=== PATIENT | female | born 1960 | race Caucasian/White ===

== ENCOUNTER 2016-08-31 22:03 | Inpatient (IN) | payer MEDICAID, OTHER ==
[2016-08-31] MEDS ORDERED: Albuterol-Ipratrop 3 mg / 0.5 (3 ml) UD ONE ×2 (22:14→22:23)
[2016-08-31] MEDS ORDERED: Albuterol-Ipratrop 3 mg / 0.5 (3 ml) UD IH STA (22:47)
[2016-08-31 23:20] LABS: BASO % 0.6 % (0.0-2.0); EOS # 0.1 K/uL (0.0-0.7); LYMPH # 0.7 K/uL (1.0-4.3); MEAN PLATELET VOLUME 7.9 fL (7.2-11.7); MONO # 0.6 K/uL (0.0-0.8); NRBC % 0.2 % (0.0-2.0); RED CELL DISTRIBUTION WIDTH 15.6 % (11.5-14.5)
[2016-08-31 23:25] LABS: CHLORIDE 93 mmol/L (98-107)
[2016-08-31 23:26] LABS: SODIUM 131 mmol/L (132-148)
[2016-08-31 23:28] LABS: AST/SGOT 38 U/L (14-36); BILIRUBIN,TOTAL 0.8 mg/dL (0.2-1.3); CARBON DIOXIDE 25 mmol/L (22-30); GFR AFRICAN-AMERICAN > 60; TOTAL PROTEIN 7.3 g/dL (6.3-8.3)
[2016-08-31 23:29] LABS: ALKALINE PHOSPHATASE 33 U/L (38-126); ALT/SGPT 28 U/L (9-52); BLOOD UREA NITROGEN 17 mg/dL (7-17); CALCIUM 8.5 mg/dl (8.6-10.4); EOS % 6.3 % (0.0-4.0); GLUCOSE,RANDOM 190 mg/dL (65-105); HEMATOCRIT 30.6 % (34.0-47.0); LYMPH % 35.6 % (20.0-40.0); MEAN CELL VOLUME 89.6 fL (81.0-99.0); MEAN CORPUSCULAR HEMOGLOBIN 30.6 pg (27.0-31.0); MEAN CORPUSCULAR HGB CONC 34.1 g/dL (33.0-37.0); MONO % 28.4 % (0.0-10.0); PLATELET COUNT 177 K/uL (130-400)
[2016-08-31 23:31] LABS: INR 1.1
[2016-08-31] MEDS ORDERED: Potassium Chloride 20 mEq ER Tab PO STA (23:50)
[2016-08-31] MEDS ORDERED: Lactated Ringer's 1,000 ML IVB STA (23:51)
[2016-08-31] MEDS ORDERED: ceFAZolin IV 1 gm in Dextrose 1 GM/50 ML BAG IVPB STA (23:51)
[2016-08-31] MEDS ORDERED: Azithromycin 500mg/250ML NS 500 MG/250 ML BAG IVPB STA (23:51)
[2016-08-31] MEDS ORDERED: Lactated Ringer's 1,000 ML ONE (23:58)
[2016-08-31] MEDS ORDERED: Potassium Chloride 20 mEq ER Tab PO ONE ×2 (23:58→23:59)
[2016-09-01 00:09] LABS: ABG ALLEN TEST POS; DRAW SITE R RAD
[2016-09-01] MEDS ORDERED: ceFAZolin 1 gm FROZEN Premix 1 GM/50 ML ML IVPB ONE (00:26)
[2016-09-01] MEDS ORDERED: Azithromycin 500mg/250ML NS 500 MG/250 ML BAG IVPB ONE (00:26)
--- NOTE | 2016-09-01 00:34 | C.PDOC ---
Time Seen by Provider: 08/31/16 22:38 Chief Complaint (Nursing): Shortness Of Breath History Per: Patient, Family Onset/Duration Of Symptoms: Days Current Symptoms Are (Timing): Worse Current Respiratory Medications: See Home Med List Severity: Severe Associated Symptoms: Fever, Productive Cough Reports Recently: Treated By A Physician Additional History Per: Prior Records Past Medical History Reviewed: Historical Data, Nursing Documentation, Vital Signs Vital Signs: Last Vital Signs Temp 102.6 F H 09/01/16 00:02 Pulse 111 H 08/31/16 22:13 Resp 24 08/31/16 23:02 BP 117/58 L 08/31/16 22:57 Pulse Ox 94 L 09/01/16 00:36 - Medical History PMH: Diabetes, HTN Family History: States: Unknown Family Hx - Social History Hx Tobacco Use: No Hx Alcohol Use: No Hx Substance Use: No Review Of Systems Except As Marked, All Systems Reviewed And Found Negative. Constitutional: Positive for: Fever, Malaise Cardiovascular: Positive for: Chest Pain Respiratory: Positive for: Cough, Shortness of Breath. Negative for: Hemoptysis Gastrointestinal: Negative for: Abdominal Pain Musculoskeletal: Negative for: Neck Pain Skin: Negative for: Rash Neurological: Negative for: Weakness, Numbness, Seizures, Altered Mental Status Physical Exam - Physical Exam Appears: In Acute Distress Skin: Normal Color, Warm, Dry Head: Atraumatic, Normacephalic Eye(s): bilateral: PERRL, EOMI Neck: Normal ROM, Supple Cardiovascular: Rhythm Regular Respiratory: No Accessory Muscle Use, Rhonchi, Other (tachypnea) Gastrointestinal/Abdominal: Soft, No Tenderness Back: No CVA Tenderness Extremity: Normal ROM, No Calf Tenderness Neurological/Psych: Oriented x3, Normal Motor, Normal Sensation ED Course And Treatment - Laboratory Results Result Diagrams: 08/31/16 23:14 08/31/16 23:14 Lab Interpretation: Abnormal Interpretation Of Abnormal: Low wbc count. ECG: Interpreted By Me, Viewed By Me ECG Rhythm: Sinus Rhythm, Nonspecific Changes Rate From EC O2 Sat by Pulse Oximetry: 94 Pulse Ox Interpretation: Other Interpretation Of Abnormal: borderline - Radiology CXR: Interpreted by Me, Viewed By Me CXR Interpretation: Yes: Infiltrates (left lower) Progress - Interventions Interventions:: Observation, Intravenous fluid, Oxygen - Medications Administered Oral: Acetaminophen, Other (KCl) Inhaled nebulized: Anticholinergic, Beta-2 agonist Intravenous: Corticosteroid, Other (Abx) - Data Reviewed Data Reviewed: Lab, Diagnostic imaging, EKG, Old records - Patient Status Patient status: Partially improved - Critical Care Citical Care: Excluding Proc Time Critical Care Time: 60 minutes - Continuity of Care Discussed patient case with:: Patient, Family-HIPPA compliant Disposition - Disposition Disposition Time: 01:00 Condition: FAIR - Clinical Impression Clinical Impression: Pneumonia Physician Patient Turnover Patient Signed Over To: Ester Gaspar Handoff Comments: pending call back from PMD Dr. Huntley for admission
[2016-09-01 02:09] LABS: EOSINOPHIL 5 % (0-4); NEUTROPHIL 25 % (50-75); TOTAL CELLS COUNTED 100
[2016-09-01 03:47] LABS: URINE BILIRUBIN NEGATIVE (NEGATIVE); URINE BLOOD NEGATIVE (NEGATIVE); URINE COLOR Yellow (YELLOW); URINE GLUCOSE (UA) 2+ mg/dL (Normal); URINE KETONE NEGATIVE (NEGATIVE); URINE LEUKOCYTE ESTERASE NEG Leu/uL (Negative); URINE PROTEIN 1+ mg/dL (NEGATIVE); URINE UROBILINOGEN NORMAL mg/dL (0.2-1.0); WBC URINE 1 /hpf (0-5)
[2016-09-01] MEDS: Albuterol-Ipratrop 3 mg / 0.5 (3 ml) UD IH SCH ×4 (03:59→17:27)
[2016-09-01] MEDS ORDERED: Promethazine/Cod 6.25mg-10mg/5ml Syr UD PO STA (05:50)
--- NOTE | 2016-09-01 11:05 | RAD ---
PROCEDURE: CHEST RADIOGRAPH, 1 VIEW HISTORY: Shortness of breath COMPARISON: None available. FINDINGS: LUNGS: Mild venous congestion. Patchy left basilar airspace opacity with small left pleural effusion. Nodular density at the left lung base. Biapical pleural thickening. Right hilar prominence. PLEURA: As above. CARDIOVASCULAR: Normal. OSSEOUS STRUCTURES: Diffuse osteopenia. VISUALIZED UPPER ABDOMEN: Normal. OTHER FINDINGS: None. IMPRESSION: Mild venous congestion. Patchy left basilar airspace opacity with small left pleural effusion. Nodular density at the left lung base. Biapical pleural thickening. Right hilar prominence.
[2016-09-01] MEDS ORDERED: LENALIDOMIDE 15 MG PO SCH (11:30)
--- NOTE | 2016-09-01 11:42 | CP.PCM.PN ---
Subjective - Date & Time of Evaluation Date of Evaluation: 09/01/16 Time of Evaluation: 07:40 - Subjective Subjective: PGY2 Medicine Note - Dr. Huntley's Service CC: Cough + SOB x 3weeks HPI: This 56 year old Female with PMHx of Diabetes, HTN, Multiple Myeloma - presents to the ED c/o non-productive cough and SOB for the past 3 weeks. She states there is mucous present, however she cannot expel it. One week ago, she began to experience nausea from this mucous sensation, and reports vomiting 2-3 times per day, consistent with food contents and dark green mucous. She experiences relief after vomiting, and denies hematoschezia. Patient reports that she became febrile 2 days ago at 102.2F. She was treated by her PMD recently with oral Abx and Ventolin INH without marked improvement. Last nite her cough and SOB became more severe, prompting her to come to the ED last night (Tmax 103F). She recently imigrated from [place] 1 month ago. Admits to f/c , diaphoresis, weakness, SOB, cough, Abd pain. Denies H/A, dizziness, chest pain , overt nausea, dysuria, leg pain, sick contacts, or any additional complaints. PMD: Dr. Huntley PMH: Diabetes, HTN, Multiple Myeloma PSHx: bone marrow transplant Family History: States: Unknown Family Hx Meds: see EMR NKDA SocHx: Denies ETOH, tobacco, or illicit drug use Objective - Vital Signs/Intake and Output Vital Signs (last 24 hours): Temp Pulse Resp BP Pulse Ox 97.4 F L 61 19 99/62 L 96 09/01/16 08:06 09/01/16 08:06 09/01/16 08:06 09/01/16 08:06 09/01/16 08:06 - Medications Medications: Current Medications Albuterol/Ipratropium (Duoneb 3 Mg/0.5 Mg (3 Ml) Ud) 3 ml IH RQ4 DK Home Med (Amlodipine/Valsartan [Exforge 10-160 Mg Tablet]) 1 tab PO DAILY DK Home Med (Lenalidomide [Revlimid]) 15 mg PO DAILY DK Home Med (Sitagliptin Phos/Metformin Hcl [Janumet 50-1,000 Mg Tablet]) 1 each PO DAILY [facility] Ceftriaxone Sodium 1 gm/ (Sodium Chloride) 100 mls @ 100 mls/hr IVPB DAILY [facility] Azithromycin (Zithromax 500mg In Ns Addvantage) 500 mg in 250 mls @ 167 mls/hr IVPB Q24H [facility] Insulin Aspart (Novolog) 0 unit SC ACHS DK PRN Reason: Protocol Prednisone (Prednisone Tab) 10 mg PO BID [facility] Pregabalin (Lyrica) 75 mg PO DAILY [facility] Fluticasone/Salmeterol (Advair Diskus 250/50) 1 puff INH RQ12 DK - Labs Labs: PT 12.1 SECONDS (9.7-12.2) 08/31/16 23:14 INR 1.1 08/31/16 23:14 APTT 23 SECONDS (21-34) 08/31/16 23:14 - Constitutional Appears: Non-toxic, No Acute Distress - Head Exam Head Exam: ATRAUMATIC, NORMAL INSPECTION - Eye Exam Eye Exam: EOMI, Normal appearance, PERRL Pupil Exam: NORMAL ACCOMODATION - ENT Exam ENT Exam: Mucous Membranes Moist - Neck Exam Neck Exam: Full ROM, Normal Inspection. absent: Tenderness - Respiratory Exam Respiratory Exam: Decreased Breath Sounds, NORMAL BREATHING PATTERN. absent: Rales, Rhonchi, Wheezes Additional comments: +Cough - Cardiovascular Exam Cardiovascular Exam: REGULAR RHYTHM, +S1, +S2. absent: Tachycardia Additional comments: Tenderness along R chest wall (likely from coughing) - GI/Abdominal Exam GI & Abdominal Exam: Soft, Tenderness (mid epigastric), Hypoactive Bowel Sounds - Extremities Exam Extremities Exam: Normal Capillary Refill, Normal Inspection. absent: Pedal Edema, Tenderness - Back Exam Back Exam: NORMAL INSPECTION. absent: CVA tenderness (L), CVA tenderness (R) - Neurological Exam Neurological Exam: Alert, Awake, Oriented x3 - Psychiatric Exam Psychiatric exam: Normal Affect, Normal Mood - Skin Skin Exam: Dry, Intact, Normal Color, Warm Assessment and Plan - Assessment and Plan (Free Text) Assessment: Non-Productive Cough + Dyspnea - CXR - Mild venous congestion. Patchy left basilar airspace opacity with small left pleural effusion. Nodular density at the left lung base. Biapical pleural thickening. Right hilar prominence. - Mucinex La 600 mg PO BID DK - Duoneb 3 ml IH RQ4 DK - Ceftriaxone Sodium 1 gm IVPB DAILY DK -Azithromycin 500 mg IVPB Q24H DK -Advair Diskus 250/50 1 puff INH RQ12 DK -Prednisone Tab 10 mg PO BID DK -f/u BC -f/u UC Chostochondritis - Tylenol 650mg PO Q6H PRN, mild pain Diabetes - Resume home med - Lantus 40u HS - Home dosing for Apidra is 16u ACB, 30u ACL, 40u ACD; Not on formulary. Start with Novolog - 16u ACB, 30u ACL, 40u ACD; -Januvia 50mg PO qd; Metformin 1000mg PO qd -Lyrica 75mg PO qd -ISS - high dose HTN -Norvasc 10 mg PO DAILY DK -Cozaar 100 mg PO DAILY DK Multiple Myeloma - Revlimid 15mg PO qd (not on formulary, hold currently) - Consulted [facility], Dr. Harding, help appreciated. - Pamidronate Disodium 90 mg/ (Sodium Chloride) 510 mls @ 125 mls/hr IV ONCE ONE Epigastric Tenderness - Mild - Likely from vomiting recently. - Continue to monitor Electrolyte Imbalance - Hypokalemia, K3 - replenished in ED, f/u AM labs Prophylaxis -Heart Healthy diet, carb consistent -SCDs -Heparin 5k u SC q8h
[2016-09-01] MEDS ORDERED: (Novolin 70/30) NPH/Regular 70/30 Units/ml 10 ml vial SC SCH ×2 (14:15→16:30)
[2016-09-01] MEDS: Azithromycin 500 MG in Sodium Chloride 0.9% 250 ML IVPB SCH (14:21)
[2016-09-01] MEDS ORDERED: (Novolog) Insulin Aspart, Recombinant 100 u/ml 10 ml vial SC SCH (16:30)
[2016-09-01] MEDS ORDERED: Home Med 1 UNIT PO SCH (17:00)
[2016-09-01] MEDS ORDERED: (Novolog) Insulin Aspart, Recombinant 100 u/ml 10 ml vial SC STA (18:00)
--- NOTE | 2016-09-01 18:10 | CP.PCM.CON ---
History of Present Illness - History of Present Illness History of Present Illness: 56 year old female with a history of multiple myeloma s/p autologous peripheral blood stem cell transplant in 2015 on maintenance Revlimid admitted with neutropenia, anemia, and pneumonia. She reports to suggestive fevers, productive green phlegm and fatigue. She is currently receiving antibiotics and reports to feeling better. Past medical history: Multiple myeloma Past surgical history: None Family history: Denies hematologic and oncologic problems Social history: Denies tobacco, alcohol, and illicit drug use. Allergies: NKA Review of systems: All remaining review of systems including HEENT, cardiovascular, respiratory, gastrointestinal, genitourinary, musculoskeletal, dermatologic, neurologic, and psychiatric are negative unless mentioned in the HPI. Past Patient History - Past Medical History & Family History Past Medical History?: Yes - Past Social History Smoking Status: Never Smoked - CARDIAC Hx Hypertension: Yes - PULMONARY Hx Asthma: Yes - NEUROLOGICAL Hx Neurological Disorder: No - HEENT Hx HEENT Problems: No - RENAL Hx Chronic Kidney Disease: No - ENDOCRINE/METABOLIC Hx Diabetes Mellitus Type 2: Yes - HEMATOLOGICAL/ONCOLOGICAL Hx Blood Disorders: No Other/Comment: multiple myeloma - INTEGUMENTARY Hx Dermatological Problems: No - MUSCULOSKELETAL/RHEUMATOLOGICAL Hx Falls: No - GASTROINTESTINAL Hx Gastrointestinal Disorders: No - GENITOURINARY/GYNECOLOGICAL Hx Genitourinary Disorders: No - PSYCHIATRIC Hx Psychophysiologic Disorder: No Hx Substance Use: No - SURGICAL HISTORY Other/Comment: bone marrow transplant. lft axillary lymph node removal - ANESTHESIA Hx Anesthesia: Yes Hx Anesthesia Reactions: No Hx Malignant Hyperthermia: No Has any member of the family had a problem w/ anesthesia?: No Meds Allergies/Adverse Reactions: Allergies Allergy/AdvReac Type Severity Reaction Status Date / Time No Known Allergies Allergy Verified 08/31/16 22:16 - Medications Medications: Current Medications Acetaminophen (Tylenol 325mg Tab) 650 mg PO Q6 PRN PRN Reason: Pain, Mild (1-3) Albuterol/Ipratropium (Duoneb 3 Mg/0.5 Mg (3 Ml) Ud) 3 ml RQ4 [facility] Last Admin: 09/01/16 17:27 Dose: 3 ml Amlodipine Besylate (Norvasc) 10 mg PO DAILY [facility] Guaifenesin (Mucinex La) 600 mg PO BID [facility] Heparin Sodium (Porcine) (Heparin) 5,000 units SC Q8 [facility] Home Med (Lenalidomide [Revlimid]) 15 mg PO DAILY [facility] Ceftriaxone Sodium 1 gm/ (Sodium Chloride) 100 mls @ 100 mls/hr IVPB DAILY [facility] Last Admin: 09/01/16 13:13 Dose: 100 mls/hr Azithromycin 500 mg/ Sodium (Chloride) 250 mls @ 167 mls/hr IVPB Q24H [facility] Last Admin: 09/01/16 14:21 Dose: 167 mls/hr Pamidronate Disodium 90 mg/ (Sodium Chloride) 510 mls @ 125 mls/hr IV ONCE ONE Stop: 09/01/16 22:13 Insulin Aspart (Novolog) 0 unit SC ACHS [facility] PRN Reason: Protocol Last Admin: 09/01/16 17:01 Dose: 10 unit Insulin Aspart (Novolog) 15 unit SC STAT STA Stop: 09/01/16 18:01 Insulin Aspart (Novolog) 16 unit SC ACB DK Insulin Aspart (Novolog) 30 unit SC ACL DK Insulin Aspart (Novolog) 40 unit SC ACS DK Insulin Glargine (Lantus) 40 unit SC HS [facility] Losartan Potassium (Cozaar) 100 mg PO DAILY [facility] Metformin HCl (Glucophage) 1,000 mg PO DAILY [facility] Prednisone (Prednisone Tab) 10 mg PO BID [facility] Last Admin: 09/01/16 13:13 Dose: 10 mg Pregabalin (Lyrica) 75 mg PO DAILY [facility] Last Admin: 09/01/16 13:13 Dose: 75 mg Fluticasone/Salmeterol (Advair Diskus 250/50) 1 puff INH RQ12 [facility] Sitagliptin Phosphate (Januvia) 50 mg PO DAILY [facility] Last Admin: 09/01/16 13:13 Dose: 50 mg Physical Exam - Head Exam Head Exam: ATRAUMATIC - Eye Exam Eye Exam: Normal appearance - ENT Exam ENT Exam: Mucous Membranes Dry - Respiratory Exam Respiratory Exam: NORMAL BREATHING PATTERN - Cardiovascular Exam Cardiovascular Exam: +S1, +S2 - GI/Abdominal Exam GI & Abdominal Exam: Normal Bowel Sounds - Extremities Exam Extremities exam: Positive for: normal inspection - Neurological Exam Neurological exam: Oriented x3 - Psychiatric Exam Psychiatric exam: Normal Affect, Normal Mood - Skin Skin Exam: Warm Results - Vital Signs Recent Vital Signs: Last Vital Signs Temp 98.2 F 09/01/16 15:42 Pulse 78 09/01/16 15:42 Resp 20 09/01/16 15:42 BP 112/69 06/27/17 15:42 Pulse Ox 95 09/01/16 15:42 - Labs Result Diagrams: 08/31/16 23:14 08/31/16 23:14 Labs: Laboratory Results - last 24 hr 09/01/16 09/01/16 09/01/16 03:30 08:24 11:19 POC Glucose (mg/dL) 359 H 390 H Urine Color Yellow Urine Clarity Clear Urine pH 5.0 Ur Specific [place] 1.013 Urine Protein 1+ H Urine Glucose (UA) 2+ H Urine Ketones Negative Urine Blood Negative Urine Nitrate Negative Urine Bilirubin Negative Urine Urobilinogen Normal Ur Leukocyte Esterase Neg Urine WBC (Auto) 1 Ur Squamous Epith Cells 1 09/01/16 09/01/16 16:29 17:40 POC Glucose (mg/dL) 439 H* 401 H* Urine Color Urine Clarity Urine pH Ur Specific [place]well Urine Protein Urine Glucose (UA) Urine Ketones Urine Blood Urine Nitrate Urine Bilirubin Urine Urobilinogen Ur Leukocyte Esterase Urine WBC (Auto) Ur Squamous Epith Cells Assessment & Plan (1) Neutropenia Assessment and Plan: hold revlimid neutropenic precautions does not require Neupogen cont. to monitor daily Status: Acute (2) Anemia Assessment and Plan: chronic disease multiple myeloma and chemotherapy Status: Acute (3) Multiple myeloma Assessment and Plan: cont. to hold Revlimid until completes antibiotics Thank you for this interesting consult. Status: Acute
[2016-09-01] MEDS: guaiFENesin 600 mg ER Tab PO SCH (18:22)
[2016-09-01] MEDS: Fluticasone-Salmeterol 250-50mcg Diskus INH SCH (20:43)
[2016-09-01] MEDS: (Novolog) Insulin Aspart, Recombinant 100 u/ml 10 ml vial SC SCH (22:04)
[2016-09-01] MEDS: (Lantus) Insulin Glargine, Recombinant SC SCH (22:05)
[2016-09-02] MEDS: Albuterol-Ipratrop 3 mg / 0.5 (3 ml) UD IH SCH ×6 (00:45→19:59)
[2016-09-02] MEDS ORDERED: (Novolin 70/30) NPH/Regular 70/30 Units/ml 10 ml vial SC SCH (07:30)
[2016-09-02] MEDS: Fluticasone-Salmeterol 250-50mcg Diskus INH SCH ×2 (07:37→19:59)
--- NOTE | 2016-09-02 07:47 | CP.PCM.PN ---
Subjective - Date & Time of Evaluation Date of Evaluation: 09/02/16 Time of Evaluation: 07:20 - Subjective Subjective: PGY2 Medicine Note - Dr. Huntley's Service. Patient seen and examined this AM, family present. Patient continues to complain of cough and persistent rib pain with coughing. No vomiting today, however she still cannot expel the mucous with Mucinex. Denies f/c, overt SOB, abdominal pain, n/v, d/c, LE edema, or any additional complaints. Objective - Vital Signs/Intake and Output Vital Signs (last 24 hours): Temp Pulse Resp BP Pulse Ox 97.7 F 81 20 107/67 95 09/02/16 05:53 09/02/16 05:53 09/02/16 05:53 09/02/16 05:53 09/02/16 05:53 Intake and Output: 09/02/16 09/02/16 06:59 18:59 Intake Total 520 Balance 520 - Medications Medications: Current Medications Acetaminophen (Tylenol 325mg Tab) 650 mg PO Q6 PRN PRN Reason: Pain, Mild (1-3) Last Admin: 09/01/16 18:22 Dose: 650 mg Albuterol/Ipratropium (Duoneb 3 Mg/0.5 Mg (3 Ml) Ud) 3 ml IH RQ4 [facility] Last Admin: 09/02/16 07:36 Dose: 3 ml Amlodipine Besylate (Norvasc) 10 mg PO DAILY [facility] Guaifenesin (Mucinex La) 600 mg PO BID [facility] Last Admin: 09/01/16 18:22 Dose: 600 mg Heparin Sodium (Porcine) (Heparin) 5,000 units SC Q8 [facility] Last Admin: 09/02/16 06:36 Dose: 5,000 units Home Med (Lenalidomide [Revlimid]) 15 mg PO DAILY [facility] Ceftriaxone Sodium 1 gm/ (Sodium Chloride) 100 mls @ 100 mls/hr IVPB DAILY [facility] Last Admin: 09/01/16 13:13 Dose: 100 mls/hr Azithromycin 500 mg/ Sodium (Chloride) 250 mls @ 167 mls/hr IVPB Q24H [facility] Last Admin: 09/01/16 14:21 Dose: 167 mls/hr Insulin Aspart (Novolog) 16 unit SC ACB DK Insulin Aspart (Novolog) 30 unit SC ACL DK Insulin Aspart (Novolog) 40 unit SC ACS [facility] Insulin Aspart (Novolog) 0 unit SC ACHS [facility] PRN Reason: Protocol Last Admin: 09/01/16 22:04 Dose: 2 unit Insulin Glargine (Lantus) 40 unit SC HS [facility] Last Admin: 09/01/16 22:05 Dose: 40 units Losartan Potassium (Cozaar) 100 mg PO DAILY [facility] Metformin HCl (Glucophage) 1,000 mg PO DAILY [facility] Prednisone (Prednisone Tab) 10 mg PO BID [facility] Last Admin: 09/01/16 18:22 Dose: 10 mg Pregabalin (Lyrica) 75 mg PO DAILY [facility] Last Admin: 09/01/16 13:13 Dose: 75 mg Fluticasone/Salmeterol (Advair Diskus 250/50) 1 puff INH RQ12 [facility] Last Admin: 09/02/16 07:37 Dose: 1 puff Sitagliptin Phosphate (Januvia) 50 mg PO DAILY [facility] Last Admin: 09/01/16 13:13 Dose: 50 mg - Labs Labs: PT 12.1 SECONDS (9.7-12.2) 08/31/16 23:14 INR 1.1 08/31/16 23:14 APTT 23 SECONDS (21-34) 08/31/16 23:14 - Additional Findings Additional findings: - Constitutional Appears: Non-toxic, No Acute Distress - Head Exam Head Exam: ATRAUMATIC, NORMAL INSPECTION - Eye Exam Eye Exam: EOMI, Normal appearance, PERRL Pupil Exam: NORMAL ACCOMODATION - ENT Exam ENT Exam: Mucous Membranes Moist - Neck Exam Neck Exam: Full ROM, Normal Inspection. absent: Tenderness - Respiratory Exam Respiratory Exam: Decreased Breath Sounds, NORMAL BREATHING PATTERN. absent: Rales, Rhonchi, Wheezes Additional comments: +Cough - Cardiovascular Exam Cardiovascular Exam: REGULAR RHYTHM, +S1, +S2. absent: Tachycardia Additional comments: Tenderness along R chest wall (likely from coughing) - GI/Abdominal Exam GI & Abdominal Exam: Soft, Hypoactive Bowel Sounds. Absent: Tenderness ( previously mid epigastric) - Extremities Exam Extremities Exam: Normal Capillary Refill, Normal Inspection. absent: Pedal Edema, Tenderness - Back Exam Back Exam: NORMAL INSPECTION. absent: CVA tenderness (L), CVA tenderness (R) - Neurological Exam Neurological Exam: Alert, Awake, Oriented x3 - Psychiatric Exam Psychiatric exam: Normal Affect, Normal Mood - Skin Skin Exam: Dry, Intact, Normal Color, Warm Assessment and Plan - Assessment and Plan (Free Text) Assessment: Non-Productive Cough + Dyspnea f/u IgE + allergy studies. 09/02: Cough still non-productive. Continue Mucinex and add Mucormist with Duoneb administration Q4H. - CXR - Mild venous congestion. Patchy left basilar airspace opacity with small left pleural effusion. Nodular density at the left lung base. Biapical pleural thickening. Right hilar prominence. - Mucinex La 600 mg PO BID DK - Duoneb 3 ml IH RQ4 DK - Ceftriaxone Sodium 1 gm IVPB DAILY DK -Azithromycin 500 mg IVPB Q24H DK -Advair Diskus 250/50 1 puff INH RQ12 DK -Prednisone Tab 10 mg PO BID DK -f/u BC -f/u UC Chostochondritis - Tylenol 650mg PO Q6H PRN, mild pain Diabetes 09/02: Marked improvement today. Glucose down to 260 (from 401). - Resume home med - Lantus 40u HS - Home dosing for Apidra is 16u ACB, 30u ACL, 40u ACD; Not on formulary. Start with Novolog - 16u ACB, 30u ACL, 40u ACD; -Januvia 50mg PO qd; Metformin 1000mg PO qd -Lyrica 75mg PO qd -ISS - high dose HTN -Norvasc 10 mg PO DAILY DK -Cozaar 100 mg PO DAILY [facility] Multiple Myeloma 09/02: Per Dr. Harding, hold Revlimid 15mg PO qd - until Abx are completed. - Revlimid 15mg PO qd (not on formulary, hold currently) - Consulted [facility], Dr. Harding, help appreciated. - Pamidronate Disodium 90 mg/ (Sodium Chloride) 510 mls @ 125 mls/hr IV ONCE ONE Epigastric Tenderness - Mild - Likely from vomiting recently. - Continue to monitor Electrolyte Imbalance - Hypokalemia, K3 - replenished in ED, f/u AM labs 09/02: K2.7 -- KCl 10 IV Q3H + Kdur 40 at night. Prophylaxis -Heart Healthy diet, carb consistent -SCDs -Heparin 5k u SC q8h
[2016-09-02] MEDS: (Novolog) Insulin Aspart, Recombinant 100 u/ml 10 ml vial SC SCH ×7 (08:40→22:47)
[2016-09-02] MEDS: guaiFENesin 600 mg ER Tab PO SCH ×2 (09:26→17:33)
[2016-09-02 11:40] LABS: BASO % 0.4 % (0.0-2.0); EOS # 0.1 K/uL (0.0-0.7); EOS % 4.1 % (0.0-4.0); HEMATOCRIT 30.2 % (34.0-47.0); LYMPH # 0.7 K/uL (1.0-4.3); LYMPH % 24.8 % (20.0-40.0); MEAN CELL VOLUME 88.6 fL (81.0-99.0); MEAN CORPUSCULAR HEMOGLOBIN 30.5 pg (27.0-31.0); MEAN CORPUSCULAR HGB CONC 34.4 g/dL (33.0-37.0); MEAN PLATELET VOLUME 7.7 fL (7.2-11.7); MONO # 0.5 K/uL (0.0-0.8); MONO % 18.8 % (0.0-10.0); NRBC % 0.2 % (0.0-2.0); RED CELL DISTRIBUTION WIDTH 15.5 % (11.5-14.5); WHITE BLOOD COUNT 2.7 K/uL (4.8-10.8)
[2016-09-02 11:52] LABS: CHLORIDE 99 mmol/L (98-107)
[2016-09-02 11:53] LABS: POTASSIUM 2.7 mmol/L (3.6-5.2); SODIUM 135 mmol/L (132-148)
[2016-09-02 11:55] LABS: CARBON DIOXIDE 23 mmol/L (22-30); GFR AFRICAN-AMERICAN > 60
[2016-09-02 11:56] LABS: ALKALINE PHOSPHATASE 41 U/L (38-126); ALT/SGPT 23 U/L (9-52); AST/SGOT 15 U/L (14-36); BILIRUBIN,TOTAL 0.4 mg/dL (0.2-1.3); BLOOD UREA NITROGEN 18 mg/dL (7-17); CALCIUM 8.5 mg/dl (8.6-10.4); GLUCOSE,RANDOM 247 mg/dL (65-105); PHOSPHOROUS 1.8 mg/dL (2.5-4.5); TOTAL PROTEIN 6.4 g/dL (6.3-8.3)
[2016-09-02 11:57] LABS: MAGNESIUM 1.9 mg/dL (1.6-2.3)
[2016-09-02] MEDS: Azithromycin 500 MG in Sodium Chloride 0.9% 250 ML IVPB SCH (12:33)
[2016-09-02] MEDS ORDERED: Acetylcysteine 20% Inhal Soln (4ml) INH SCH (14:00)
[2016-09-02] MEDS: Acetylcysteine 20% Inhal Soln (4ml) INH SCH (19:59)
[2016-09-02] MEDS: (Lantus) Insulin Glargine, Recombinant SC SCH (22:38)
--- NOTE | 2016-09-03 00:04 | CP.PCM.PN ---
Subjective - Date & Time of Evaluation Date of Evaluation: 09/02/16 Time of Evaluation: 13:10 - Subjective Subjective: Has cough Objective - Vital Signs/Intake and Output Vital Signs (last 24 hours): Temp Pulse Resp BP Pulse Ox 98.7 F 102 H 20 149/82 96 09/02/16 16:02 09/02/16 16:02 09/02/16 16:02 09/02/16 16:02 09/02/16 16:02 Intake and Output: 09/02/16 09/03/16 18:59 06:59 Intake Total 300 Balance 300 - Medications Medications: Current Medications Acetaminophen (Tylenol 325mg Tab) 650 mg PO Q6 PRN PRN Reason: Pain, Mild (1-3) Last Admin: 09/02/16 08:41 Dose: 650 mg Acetylcysteine (Acetylcysteine 20%) 4 ml INH RQ4 [facility] Last Admin: 09/02/16 19:59 Dose: Not Given Albuterol/Ipratropium (Duoneb 3 Mg/0.5 Mg (3 Ml) Ud) 3 ml IH RQ4 [facility] Last Admin: 09/02/16 19:59 Dose: 3 ml Amlodipine Besylate (Norvasc) 10 mg PO DAILY [facility] Last Admin: 09/02/16 09:26 Dose: 10 mg Aspirin (Aspirin Chewable) 81 mg PO DAILY [facility] Last Admin: 09/02/16 17:33 Dose: 81 mg Guaifenesin (Mucinex La) 600 mg PO BID [facility] Last Admin: 09/02/16 17:33 Dose: 600 mg Heparin Sodium (Porcine) (Heparin) 5,000 units SC Q8 [facility] Last Admin: 09/02/16 22:38 Dose: 5,000 units Home Med (Lenalidomide [Revlimid]) 15 mg PO DAILY [facility] Ceftriaxone Sodium 1 gm/ (Sodium Chloride) 100 mls @ 100 mls/hr IVPB DAILY [facility] Last Admin: 09/02/16 09:26 Dose: 100 mls/hr Azithromycin 500 mg/ Sodium (Chloride) 250 mls @ 167 mls/hr IVPB Q24H [facility] Last Admin: 09/02/16 12:33 Dose: 167 mls/hr Insulin Aspart (Novolog) 16 unit SC ACB [facility] Last Admin: 09/02/16 08:40 Dose: 16 unit Insulin Aspart (Novolog) 30 unit SC ACL [facility] Last Admin: 09/02/16 12:34 Dose: 30 unit Insulin Aspart (Novolog) 40 unit SC ACS [facility] Last Admin: 09/02/16 18:48 Dose: 40 unit Insulin Aspart (Novolog) 0 unit SC ACHS [facility] PRN Reason: Protocol Last Admin: 09/02/16 22:47 Dose: Not Given Insulin Glargine (Lantus) 40 unit SC HS [facility] Last Admin: 09/02/16 22:38 Dose: 40 units Losartan Potassium (Cozaar) 100 mg PO DAILY [facility] Last Admin: 09/02/16 09:26 Dose: 100 mg Metformin HCl (Glucophage) 1,000 mg PO DAILY [facility] Last Admin: 09/02/16 09:26 Dose: 1,000 mg Potassium Chloride (K-Dur 20 Meq Er Tab) 40 meq PO ONCE ONE Stop: 09/03/16 22:01 Prednisone (Prednisone Tab) 10 mg PO BID [facility] Last Admin: 09/02/16 17:33 Dose: 10 mg Pregabalin (Lyrica) 75 mg PO DAILY [facility] Last Admin: 09/02/16 09:26 Dose: 75 mg Fluticasone/Salmeterol (Advair Diskus 250/50) 1 puff INH RQ12 [facility] Last Admin: 09/02/16 19:59 Dose: 1 puff Sitagliptin Phosphate (Januvia) 50 mg PO DAILY [facility] Last Admin: 09/02/16 09:26 Dose: 50 mg - Labs Labs: 09/02/16 11:28 09/02/16 11:28 PT 12.1 SECONDS (9.7-12.2) 08/31/16 23:14 INR 1.1 08/31/16 23:14 APTT 23 SECONDS (21-34) 09/02/16 11:28 - Head Exam Head Exam: ATRAUMATIC - Eye Exam Eye Exam: Normal appearance - ENT Exam ENT Exam: Mucous Membranes Dry - Respiratory Exam Respiratory Exam: NORMAL BREATHING PATTERN - Cardiovascular Exam Cardiovascular Exam: +S1, +S2 - GI/Abdominal Exam GI & Abdominal Exam: Normal Bowel Sounds - Extremities Exam Extremities Exam: Normal Inspection Assessment and Plan (1) Neutropenia Assessment & Plan: improving Revlimid on hold Status: Acute (2) Anemia Assessment & Plan: chronic disease multiple myeloma, chemo on hold Status: Acute (3) Multiple myeloma Assessment & Plan: s/p bone marrow transplant maintenance Revlimid on hold Status: Acute
[2016-09-03] MEDS: Albuterol-Ipratrop 3 mg / 0.5 (3 ml) UD IH SCH ×6 (00:24→20:26)
[2016-09-03] MEDS: Acetylcysteine 20% Inhal Soln (4ml) INH SCH ×6 (00:25→20:26)
[2016-09-03 08:48] LABS: CHLORIDE 104 mmol/L (98-107); SODIUM 136 mmol/L (132-148)
[2016-09-03 08:50] LABS: ALB/GLOB RATIO 0.9 (1.0-2.1); ALKALINE PHOSPHATASE 39 U/L (38-126); ALT/SGPT 20 U/L (9-52); AST/SGOT 14 U/L (14-36); BILIRUBIN,TOTAL 0.5 mg/dL (0.2-1.3); BLOOD UREA NITROGEN 14 mg/dL (7-17); CARBON DIOXIDE 23 mmol/L (22-30); GFR AFRICAN-AMERICAN > 60
[2016-09-03 08:51] LABS: GLUCOSE,RANDOM 174 mg/dL (65-105); LYMPH # 1.1 K/uL (1.0-4.3); MAGNESIUM 1.8 mg/dL (1.6-2.3); MEAN CELL VOLUME 88.8 fL (81.0-99.0); NRBC % 0.1 % (0.0-2.0); PHOSPHOROUS 2.2 mg/dL (2.5-4.5)
[2016-09-03 09:00] LABS: BASO % 0.4 % (0.0-2.0); EOS # 0.1 K/uL (0.0-0.7); EOS % 2.7 % (0.0-4.0); HEMATOCRIT 28.3 % (34.0-47.0); LYMPH % 26.4 % (20.0-40.0); MEAN CORPUSCULAR HEMOGLOBIN 29.9 pg (27.0-31.0); MEAN CORPUSCULAR HGB CONC 33.7 g/dL (33.0-37.0); MEAN PLATELET VOLUME 7.4 fL (7.2-11.7); MONO # 0.8 K/uL (0.0-0.8); MONO % 18.4 % (0.0-10.0); RED CELL DISTRIBUTION WIDTH 15.4 % (11.5-14.5)
[2016-09-03 09:01] LABS: WHITE BLOOD COUNT 4.3 K/uL (4.8-10.8)
[2016-09-03] MEDS: (Novolog) Insulin Aspart, Recombinant 100 u/ml 10 ml vial SC SCH ×8 (09:02→22:01)
[2016-09-03] MEDS: Fluticasone-Salmeterol 250-50mcg Diskus INH SCH ×2 (09:06→20:26)
[2016-09-03] MEDS: guaiFENesin 600 mg ER Tab PO SCH ×2 (10:59→19:33)
[2016-09-03] MEDS: Magnesium Sulfate 1 gm in D5W 1 GM/100 ML BAG IVPB SCH ×2 (11:01→15:44)
--- NOTE | 2016-09-03 11:01 | CP.PCM.PN ---
Subjective - Date & Time of Evaluation Date of Evaluation: 09/03/16 Time of Evaluation: 07:15 - Subjective Subjective: PGY2 Medicine Note - Dr. Huntley's Service. Patient seen and examined this AM, family present. Patient continues to complain of cough and persistent rib pain with coughing (reproducible to palpation). No vomiting today, however she still cannot expel the mucous - she refused Mucormist last night because she did not like the smell. Denies f/c, overt SOB, abdominal pain, n/v, d/c, LE edema, or any additional complaints. Objective - Vital Signs/Intake and Output Vital Signs (last 24 hours): Temp Pulse Resp BP Pulse Ox 98.8 F 89 20 143/81 93 L 09/03/16 08:25 09/03/16 08:25 09/03/16 08:25 09/03/16 08:25 09/03/16 08:25 Intake and Output: 09/03/16 09/03/16 06:59 18:59 Intake Total 300 Balance 300 - Medications Medications: Current Medications Acetaminophen (Tylenol 325mg Tab) 650 mg PO Q6 PRN PRN Reason: Pain, Mild (1-3) Last Admin: 09/02/16 08:41 Dose: 650 mg Acetylcysteine (Acetylcysteine 20%) 4 ml INH RQ4 [facility] Last Admin: 09/03/16 09:06 Dose: Not Given Albuterol/Ipratropium (Duoneb 3 Mg/0.5 Mg (3 Ml) Ud) 3 ml IH RQ4 [facility] Last Admin: 09/03/16 09:06 Dose: 3 ml Amlodipine Besylate (Norvasc) 10 mg PO DAILY [facility] Last Admin: 09/02/16 09:26 Dose: 10 mg Aspirin (Aspirin Chewable) 81 mg PO DAILY [facility] Last Admin: 09/02/16 17:33 Dose: 81 mg Guaifenesin (Mucinex La) 600 mg PO BID [facility] Last Admin: 09/02/16 17:33 Dose: 600 mg Heparin Sodium (Porcine) (Heparin) 5,000 units SC Q8 [facility] Last Admin: 09/03/16 05:42 Dose: 5,000 units Home Med (Lenalidomide [Revlimid]) 15 mg PO DAILY [facility] Ceftriaxone Sodium 1 gm/ (Sodium Chloride) 100 mls @ 100 mls/hr IVPB DAILY [facility] Last Admin: 09/02/16 09:26 Dose: 100 mls/hr Azithromycin 500 mg/ Sodium (Chloride) 250 mls @ 167 mls/hr IVPB Q24H [facility] Last Admin: 09/02/16 12:33 Dose: 167 mls/hr Insulin Aspart (Novolog) 16 unit SC ACB [facility] Last Admin: 09/03/16 09:02 Dose: 16 unit Insulin Aspart (Novolog) 30 unit SC ACL [facility] Last Admin: 09/02/16 12:34 Dose: 30 unit Insulin Aspart (Novolog) 40 unit SC ACS [facility] Last Admin: 09/02/16 18:48 Dose: 40 unit Insulin Aspart (Novolog) 0 unit SC ACHS [facility] PRN Reason: Protocol Last Admin: 09/03/16 09:03 Dose: 2 unit Insulin Glargine (Lantus) 40 unit SC HS [facility] Last Admin: 09/02/16 22:38 Dose: 40 units Losartan Potassium (Cozaar) 100 mg PO DAILY [facility] Last Admin: 09/02/16 09:26 Dose: 100 mg Metformin HCl (Glucophage) 1,000 mg PO DAILY [facility] Last Admin: 09/02/16 09:26 Dose: 1,000 mg Potassium Chloride (K-Dur 20 Meq Er Tab) 40 meq PO ONCE ONE Stop: 09/03/16 22:01 Potassium Chloride (K-Dur 20 Meq Er Tab) 40 meq PO ONCE ONE Stop: 09/03/16 14:01 Prednisone (Prednisone Tab) 10 mg PO BID [facility] Last Admin: 09/02/16 17:33 Dose: 10 mg Pregabalin (Lyrica) 75 mg PO DAILY [facility] Last Admin: 09/02/16 09:26 Dose: 75 mg Fluticasone/Salmeterol (Advair Diskus 250/50) 1 puff INH RQ12 [facility] Last Admin: 09/03/16 09:06 Dose: 1 puff Sitagliptin Phosphate (Januvia) 50 mg PO DAILY [facility] Last Admin: 09/02/16 09:26 Dose: 50 mg - Labs Labs: 09/03/16 08:28 09/03/16 08:28 PT 12.1 SECONDS (9.7-12.2) 08/31/16 23:14 INR 1.1 08/31/16 23:14 APTT 23 SECONDS (21-34) 09/02/16 11:28 - Additional Findings Additional findings: - Constitutional Appears: Non-toxic, No Acute Distress - Head Exam Head Exam: ATRAUMATIC, NORMAL INSPECTION - Eye Exam Eye Exam: EOMI, Normal appearance, PERRL Pupil Exam: NORMAL ACCOMODATION - ENT Exam ENT Exam: Mucous Membranes Moist - Neck Exam Neck Exam: Full ROM, Normal Inspection. absent: Tenderness - Respiratory Exam Respiratory Exam: Decreased Breath Sounds, NORMAL BREATHING PATTERN. absent: Rales, Rhonchi, Wheezes Additional comments: +Cough - Cardiovascular Exam Cardiovascular Exam: REGULAR RHYTHM, +S1, +S2. absent: Tachycardia Additional comments: Tenderness along R chest wall and mid sternum - GI/Abdominal Exam GI & Abdominal Exam: Soft, Hypoactive Bowel Sounds. Absent: Tenderness ( previously mid epigastric) - Extremities Exam Extremities Exam: Normal Capillary Refill, Normal Inspection. absent: Pedal Edema, Tenderness - Back Exam Back Exam: NORMAL INSPECTION. absent: CVA tenderness (L), CVA tenderness (R) - Neurological Exam Neurological Exam: Alert, Awake, Oriented x3 - Psychiatric Exam Psychiatric exam: Normal Affect, Normal Mood - Skin Skin Exam: Dry, Intact, Normal Color, Warm Assessment and Plan - Assessment and Plan (Free Text) Assessment: Non-Productive Cough + Dyspnea 09/03: IgE negative; + allergy studies negative thus far. Phenergan with Codein Q4, PRN cough. 09/02: Cough still non-productive. Continue Mucinex and add Mucormist with Duoneb administration Q4H. - CXR - Mild venous congestion. Patchy left basilar airspace opacity with small left pleural effusion. Nodular density at the left lung base. Biapical pleural thickening. Right hilar prominence. - Mucinex La 600 mg PO BID [facility]K - Duoneb 3 ml IH RQ4 [facility] - Ceftriaxone Sodium 1 gm IVPB DAILY [facility] -Azithromycin 500 mg IVPB Q24H [facility] -Advair Diskus 250/50 1 puff INH RQ12 [facility] -Prednisone Tab 10 mg PO BID [facility]K -BC negative -UC negative Chostochondritis - Tylenol 650mg PO Q6H PRN, mild pain Diabetes 09/03: glucose 174 09/02: Marked improvement today. Glucose down to 260 (from 401). - Resume home med - Lantus 40u HS - Home dosing for Apidra is 16u ACB, 30u ACL, 40u ACD; Not on formulary. Start with Novolog - 16u ACB, 30u ACL, 40u ACD; -Januvia 50mg PO qd; Metformin 1000mg PO qd -Lyrica 75mg PO qd -ISS - high dose HTN -Norvasc 10 mg PO DAILY [facility] -Cozaar 100 mg PO DAILY [facility] Multiple Myeloma 09/02: Per Dr. Harding, hold Revlimid 15mg PO qd - until Abx are completed. - Revlimid 15mg PO qd (not on formulary, hold currently) - Consulted [facility], Dr. Harding, help appreciated. - Pamidronate Disodium 90 mg/ (Sodium Chloride) 510 mls @ 125 mls/hr IV ONCE ONE Epigastric Tenderness - Mild - Likely from vomiting recently. - Continue to monitor Electrolyte Imbalance - Hypokalemia, K3 - replenished, monitor 09/02: K2.7 -- KCl 10 IV Q3H + Kdur 40 at night. -Hypophosphatemia P2.2 - monitor. Prophylaxis -Heart Healthy diet, carb consistent -SCDs -Heparin 5k u SC q8h
[2016-09-03 13:10] LABS: D.FARINAE (D2) IGE <0.10 kU/L (<0.10)
[2016-09-03] MEDS: Azithromycin 500 MG in Sodium Chloride 0.9% 250 ML IVPB SCH (13:25)
[2016-09-03] MEDS ORDERED: Potassium Chloride 20 mEq ER Tab PO ONE ×2 (14:00→22:00)
[2016-09-03 14:33] LABS: A.TENUIS(M6)IGE <0.10 kU/L (<0.10); COTTONWOOD (T14) IGE <0.10 kU/L (<0.10); D.FARINAE (D2) IGE <0.10 kU/L (<0.10); HAZELNUT(f17) IgE <0.10 kU/L (<0.10); MAPLE (BOX ELDER) (T1)IGE <0.10 kU/L (<0.10); MILK (F2) IGE <0.10 kU/L (<0.10); MOUSE URINE PROTEINS (e72) IgE <0.10 kU/L (<0.10); OAK (T7) IGE <0.10 kU/L (<0.10); P.NOTATUM (M1) IGE <0.10 kU/L (<0.10); SHEEP SORREL (W18) IGE <0.10 kU/L (<0.10); WALNUT TREE (T10) IGE <0.10 kU/L (<0.10); WHITE ASH (T15) IGE <0.10 kU/L (<0.10)
--- NOTE | 2016-09-03 15:55 | CT ---
CT chest without IV contrast Indication: Fever, non-productive cough, congestion Technique: Contiguous axial images were obtained through the chest without intravenous contrast enhancement. Sagittal and coronal reconstructions were generated and reviewed. This CT exam was performed using 1 or more of the falling dose reduction techniques: Automated exposure control, adjustment of the MAA and/or kV according to patient size, and/or use of iterative reconstruction technique. Radiation dose (DLP): 597.03 MGy-cm. Comparison: Chest x-ray performed 08/31/16 Findings: Visualized portions of the inferior thyroid gland appear unremarkable. The unenhanced mediastinal and hilar vascular structures appear grossly unremarkable. The heart appears within normal limits of size. Azygos lobe, anatomic variant. Multiple patchy airspace opacities noted within the left upper, lingula, and right greater than left lower lobes consistent with multifocal pneumonia. Suspected pneumonia extends the level the right hilum. Left lower lobe atelectasis. Mild dependent right basilar atelectasis. Small hiatal hernia/ distal esophageal wall thickening. Limited visualization of the noncontrast upper abdomen appears grossly unremarkable. There is decreased mineralization of the bones, most likely representing osteoporosis. Rarely, underlying metabolic bone disease or infiltrative lesions can also have this appearance. L1 sclerotic focus measuring approximately 7 mm, possibly bone island. Impression: Findings as above appear consistent with multifocal pneumonia. Recommend clinical correlation and short-term follow-up upon completion of treatment for acute symptoms in order confirm complete resolution. There is decreased mineralization of the bones, most likely representing osteoporosis. Rarely, underlying metabolic bone disease or infiltrative lesions can also have this appearance. Correlate clinically. L1 sclerotic focus measuring approximately 7 mm, possibly bone island.
[2016-09-03] MEDS ORDERED: Magnesium Sulfate 1 gm in D5W 1 GM/100 ML BAG IVPB SCH (16:00)
--- NOTE | 2016-09-03 19:19 | CP.PCM.PN ---
Subjective - Date & Time of Evaluation Date of Evaluation: 09/03/16 Time of Evaluation: 17:00 - Subjective Subjective: Has cough Objective - Vital Signs/Intake and Output Vital Signs (last 24 hours): Temp Pulse Resp BP Pulse Ox 98.1 F 90 20 114/71 95 09/03/16 16:19 09/03/16 16:19 09/03/16 16:19 09/03/16 16:19 09/03/16 16:19 - Medications Medications: Current Medications Acetaminophen (Tylenol 325mg Tab) 650 mg PO Q6 PRN PRN Reason: Pain, Mild (1-3) Last Admin: 09/03/16 11:00 Dose: 650 mg Acetylcysteine (Acetylcysteine 20%) 4 ml INH RQ4 [facility] Last Admin: 09/03/16 16:23 Dose: Not Given Albuterol/Ipratropium (Duoneb 3 Mg/0.5 Mg (3 Ml) Ud) 3 ml IH RQ4 [facility] Last Admin: 09/03/16 16:23 Dose: 3 ml Amlodipine Besylate (Norvasc) 10 mg PO DAILY [facility] Last Admin: 09/03/16 11:00 Dose: 10 mg Aspirin (Aspirin Chewable) 81 mg PO DAILY [facility] Last Admin: 09/03/16 11:00 Dose: 81 mg Guaifenesin (Mucinex La) 600 mg PO BID [facility] Last Admin: 09/03/16 10:59 Dose: 600 mg Heparin Sodium (Porcine) (Heparin) 5,000 units SC Q8 [facility] Last Admin: 09/03/16 13:25 Dose: 5,000 units Ceftriaxone Sodium 1 gm/ (Sodium Chloride) 100 mls @ 100 mls/hr IVPB DAILY [facility] Last Admin: 09/03/16 11:01 Dose: 100 mls/hr Azithromycin 500 mg/ Sodium (Chloride) 250 mls @ 167 mls/hr IVPB Q24H [facility] Last Admin: 09/03/16 13:25 Dose: 167 mls/hr Insulin Aspart (Novolog) 16 unit SC ACB [facility] Last Admin: 09/03/16 09:02 Dose: 16 unit Insulin Aspart (Novolog) 30 unit SC ACL [facility] Last Admin: 09/03/16 12:18 Dose: 30 unit Insulin Aspart (Novolog) 40 unit SC ACS [facility] Last Admin: 09/02/16 18:48 Dose: 40 unit Insulin Aspart (Novolog) 0 unit SC ACHS [facility] PRN Reason: Protocol Last Admin: 09/03/16 17:57 Dose: Not Given Insulin Glargine (Lantus) 40 unit SC HS [facility] Last Admin: 09/02/16 22:38 Dose: 40 units Losartan Potassium (Cozaar) 100 mg PO DAILY [facility] Last Admin: 09/03/16 10:59 Dose: 100 mg Metformin HCl (Glucophage) 1,000 mg PO DAILY [facility] Last Admin: 09/03/16 11:00 Dose: 1,000 mg Potassium Chloride (K-Dur 20 Meq Er Tab) 40 meq PO ONCE ONE Stop: 09/03/16 22:01 Prednisone (Prednisone Tab) 10 mg PO BID [facility] Last Admin: 09/03/16 11:00 Dose: 10 mg Pregabalin (Lyrica) 75 mg PO DAILY [facility] Last Admin: 09/03/16 10:59 Dose: 75 mg Promethazine HCl/Codeine (Phenergan/Codeine Oral Syrup) 5 ml PO Q4 PRN PRN Reason: Cough Fluticasone/Salmeterol (Advair Diskus 250/50) 1 puff INH RQ12 [facility] Last Admin: 09/03/16 09:06 Dose: 1 puff Sitagliptin Phosphate (Januvia) 50 mg PO DAILY [facility] Last Admin: 09/03/16 11:00 Dose: 50 mg - Labs Labs: 09/03/16 08:28 09/03/16 08:28 PT 12.1 SECONDS (9.7-12.2) 08/31/16 23:14 INR 1.1 08/31/16 23:14 APTT 23 SECONDS (21-34) 09/02/16 11:28 - Head Exam Head Exam: ATRAUMATIC - Eye Exam Eye Exam: Normal appearance - ENT Exam ENT Exam: Mucous Membranes Dry - Respiratory Exam Respiratory Exam: NORMAL BREATHING PATTERN - Cardiovascular Exam Cardiovascular Exam: +S1, +S2 - GI/Abdominal Exam GI & Abdominal Exam: Normal Bowel Sounds - Extremities Exam Extremities Exam: Normal Inspection Assessment and Plan (1) Anemia Assessment & Plan: chronic disease chemotherapy on hold Status: Acute (2) Multiple myeloma Assessment & Plan: s/p bone marrow transplant on revlimid maintenance; on hold Status: Acute
[2016-09-03] MEDS: Promethazine/Cod 6.25mg-10mg/5ml Syr UD PO PRN (19:37)
[2016-09-03] MEDS: (Lantus) Insulin Glargine, Recombinant SC SCH (22:01)
[2016-09-04] MEDS: Albuterol-Ipratrop 3 mg / 0.5 (3 ml) UD IH SCH ×5 (00:55→20:17)
[2016-09-04] MEDS: Acetylcysteine 20% Inhal Soln (4ml) INH SCH ×6 (00:56→20:17)
[2016-09-04 07:26] LABS: BASO % 0.2 % (0.0-2.0); EOS % 0.7 % (0.0-4.0); HEMATOCRIT 28.5 % (34.0-47.0); LYMPH # 0.8 K/uL (1.0-4.3); LYMPH % 19.5 % (20.0-40.0); MEAN CELL VOLUME 89.1 fL (81.0-99.0); MEAN CORPUSCULAR HEMOGLOBIN 30.1 pg (27.0-31.0); MEAN CORPUSCULAR HGB CONC 33.8 g/dL (33.0-37.0); MEAN PLATELET VOLUME 7.3 fL (7.2-11.7); MONO # 0.6 K/uL (0.0-0.8); MONO % 15.9 % (0.0-10.0); NRBC % 0.1 % (0.0-2.0); RED CELL DISTRIBUTION WIDTH 15.8 % (11.5-14.5)
[2016-09-04] MEDS: Fluticasone-Salmeterol 250-50mcg Diskus INH SCH ×2 (07:50→20:15)
[2016-09-04 08:12] LABS: CHLORIDE 106 mmol/L (98-107); POTASSIUM 3.9 mmol/L (3.6-5.2); SODIUM 135 mmol/L (132-148)
[2016-09-04 08:14] LABS: ALB/GLOB RATIO 0.9 (1.0-2.1); ALKALINE PHOSPHATASE 42 U/L (38-126); AST/SGOT 11 U/L (14-36); BILIRUBIN,TOTAL 0.5 mg/dL (0.2-1.3); CARBON DIOXIDE 21 mmol/L (22-30); GFR AFRICAN-AMERICAN > 60; TOTAL PROTEIN 6.3 g/dL (6.3-8.3)
[2016-09-04 08:15] LABS: ALT/SGPT 16 U/L (9-52); BLOOD UREA NITROGEN 12 mg/dL (7-17); CALCIUM 8.2 mg/dl (8.6-10.4); GLUCOSE,RANDOM 229 mg/dL (65-105); MAGNESIUM 2.4 mg/dL (1.6-2.3); PHOSPHOROUS 2.8 mg/dL (2.5-4.5)
[2016-09-04] MEDS: (Novolog) Insulin Aspart, Recombinant 100 u/ml 10 ml vial SC SCH ×7 (08:56→21:53)
[2016-09-04] MEDS: guaiFENesin 600 mg ER Tab PO SCH ×2 (09:32→17:38)
--- NOTE | 2016-09-04 09:53 | CT ---
PROCEDURE: CT scan sinuses dated 09/03/2016. HISTORY: Fever , non-productive cough, congestion COMPARISON: No prior TECHNIQUE: Contiguous helical/ transaxial CT images of the paranasal sinuses were obtained. Coronal and sagittal reformats were generated. Radiation dose: Total exam DLP = 614.89 mGy-cm. This CT exam was performed using one or more of the following dose reduction techniques: Automated exposure control, adjustment of the mA and/or kV according to patient size, and/or use of iterative reconstruction technique. FINDINGS: Findings: The the visualized paranasal sinuses are well-developed. There are no fluid levels seen to suggest acute sinusitis. There has been partial resection medial wall right maxillary antrum with mild mucosal thickening. There is also sclerosis and thickening of posterolateral wall consistent with chronic inflammatory process. . No significant mucoperiosteal inflammatory changes in the left maxillary antrum. Left ostiomeatal complex is patent. . Mild mucosal thickening noted within the ethmoid air complex more so on the left side. There also appears be some minor mucosal thickening left chamber sphenoid sinus. The frontal sinuses are clear. . The frontal recesses are patent. The right sphenoethmoidal recess is narrowed. Left sphenoethmoidal recess appears occluded. The orbits and contents appear grossly unremarkable. Globes intact and lenses appropriately located. There are no retrobulbar masses or collections. Impression: No evidence of acute sinusitis. Postoperative changes medial wall right maxillary antrum with mild mucosal thickening. There is also mild sclerosis posterolateral wall right maxillary antrum. . There is mild mucosal thickening within the ethmoid air complex left greater than right as well as left chamber sphenoid sinus Left ostiomeatal complex is patent, frontal recesses and right sphenoethmoidal recess patent. Left sphenoethmoidal recess appears occluded. .
[2016-09-04] MEDS: Promethazine/Cod 6.25mg-10mg/5ml Syr UD PO PRN (11:50)
[2016-09-04] MEDS: Azithromycin 500 MG in Sodium Chloride 0.9% 250 ML IVPB SCH (13:41)
[2016-09-04] MEDS: Promethazine/Cod 6.25mg-10mg/5ml Syr UD PO SCH ×2 (15:34→21:57)
--- NOTE | 2016-09-04 17:23 | CP.PCM.PN ---
Subjective - Date & Time of Evaluation Date of Evaluation: 09/04/16 Time of Evaluation: 10:10 - Subjective Subjective: PGY2 Medicine Note- Dr. Huntley's service Patient seen and examined with family at bedside. Patient still reports cough but states the cough medication helps. Patient requesting to have medication scheduled as she has difficulty requesting it due to language barrier. Objective - Vital Signs/Intake and Output Vital Signs (last 24 hours): Temp Pulse Resp BP Pulse Ox 98.1 F 83 20 132/79 94 L 09/04/16 08:00 09/04/16 08:00 09/04/16 08:00 09/04/16 08:00 09/04/16 08:00 - Medications Medications: Current Medications Acetaminophen (Tylenol 325mg Tab) 650 mg PO Q6 PRN PRN Reason: Pain, Mild (1-3) Last Admin: 09/03/16 11:00 Dose: 650 mg Acetylcysteine (Acetylcysteine 20%) 4 ml INH RQ4 [facility] Last Admin: 09/04/16 16:23 Dose: Not Given Albuterol/Ipratropium (Duoneb 3 Mg/0.5 Mg (3 Ml) Ud) 3 ml IH RQ4 [facility] Last Admin: 09/04/16 16:21 Dose: 3 ml Amlodipine Besylate (Norvasc) 10 mg PO DAILY [facility] Last Admin: 09/04/16 09:32 Dose: 10 mg Aspirin (Aspirin Chewable) 81 mg PO DAILY [facility] Last Admin: 09/04/16 09:33 Dose: 81 mg Guaifenesin (Mucinex La) 600 mg PO BID [facility] Last Admin: 09/04/16 09:32 Dose: 600 mg Heparin Sodium (Porcine) (Heparin) 5,000 units SC Q8 [facility] Last Admin: 09/04/16 13:41 Dose: 5,000 units Ceftriaxone Sodium 1 gm/ (Sodium Chloride) 100 mls @ 100 mls/hr IVPB DAILY [facility] Last Admin: 09/04/16 09:32 Dose: 100 mls/hr Azithromycin 500 mg/ Sodium (Chloride) 250 mls @ 167 mls/hr IVPB Q24H [facility] Last Admin: 09/04/16 13:41 Dose: 167 mls/hr Insulin Aspart (Novolog) 16 unit SC ACB [facility] Last Admin: 09/04/16 08:56 Dose: 16 unit Insulin Aspart (Novolog) 30 unit SC ACL [facility] Last Admin: 09/04/16 13:40 Dose: 30 unit Insulin Aspart (Novolog) 40 unit SC ACS [facility] Last Admin: 09/03/16 19:59 Dose: Not Given Insulin Aspart (Novolog) 0 unit SC ACHS [facility] PRN Reason: Protocol Last Admin: 09/04/16 13:41 Dose: 4 unit Insulin Glargine (Lantus) 40 unit SC HS [facility] Last Admin: 09/03/16 22:01 Dose: 40 units Losartan Potassium (Cozaar) 100 mg PO DAILY [facility] Last Admin: 09/04/16 09:32 Dose: 100 mg Metformin HCl (Glucophage) 1,000 mg PO DAILY [facility] Last Admin: 09/04/16 09:33 Dose: 1,000 mg Prednisone (Prednisone Tab) 10 mg PO BID [facility] Last Admin: 09/04/16 09:32 Dose: 10 mg Pregabalin (Lyrica) 75 mg PO DAILY [facility] Last Admin: 09/04/16 09:32 Dose: 75 mg Promethazine HCl/Codeine (Phenergan/Codeine Oral Syrup) 5 ml PO Q4 [facility] Last Admin: 09/04/16 15:34 Dose: 5 ml Fluticasone/Salmeterol (Advair Diskus 250/50) 1 puff INH RQ12 [facility] Last Admin: 09/04/16 07:50 Dose: 1 puff Sitagliptin Phosphate (Januvia) 50 mg PO DAILY [facility] Last Admin: 09/04/16 09:32 Dose: 50 mg - Labs Labs: 09/04/16 07:06 09/04/16 07:06 PT 12.1 SECONDS (9.7-12.2) 08/31/16 23:14 INR 1.1 08/31/16 23:14 APTT 23 SECONDS (21-34) 09/02/16 11:28 - Constitutional Appears: Non-toxic, No Acute Distress - Head Exam Head Exam: ATRAUMATIC, NORMOCEPHALIC - Eye Exam Eye Exam: EOMI - ENT Exam ENT Exam: Mucous Membranes Moist - Respiratory Exam Respiratory Exam: Decreased Breath Sounds, Rhonchi, NORMAL BREATHING PATTERN. absent: Wheezes - Cardiovascular Exam Cardiovascular Exam: +S1, +S2 - GI/Abdominal Exam GI & Abdominal Exam: Soft, Normal Bowel Sounds. absent: Tenderness - Extremities Exam Extremities Exam: absent: Pedal Edema - Neurological Exam Neurological Exam: Alert, Awake - Psychiatric Exam Psychiatric exam: Normal Affect - Skin Skin Exam: Warm Assessment and Plan - Assessment and Plan (Free Text) Assessment: Multifocal Pneumonia 09/04: CT chest: multifocal pneumonia, decreased mineralization bones, L1 sclerotic focus, 7mm Sinus CT: negative for sinusitis continue zithromax, ceftriaxone promethazine syrup q4 scheduled per patient request- has difficulty asking nurse for medicine 09/03: IgE <2; + allergy studies negative thus far. Phenergan with Codein Q4, PRN cough. 09/02: Cough still non-productive. Continue Mucinex and add Mucormist with Duoneb administration Q4H. - CXR - Mild venous congestion. Patchy left basilar airspace opacity with small left pleural effusion. Nodular density at the left lung base. Biapical pleural thickening. Right hilar prominence. - Mucinex La 600 mg PO BID DK - Duoneb 3 ml IH RQ4 DK - Ceftriaxone Sodium 1 gm IVPB DAILY [facility]K -Azithromycin 500 mg IVPB Q24H [facility]K -Advair Diskus 250/50 1 puff INH RQ12 DK -Prednisone Tab 10 mg PO BID DK -BC negative -UC negative Neutropenia 63.7% today, was 29.1 on admission continue neutropenic precautions Hx Multiple Myeloma 09/02: Per Dr. Harding, hold Revlimid 15mg PO qd - until Abx are completed. - Revlimid 15mg PO qd (not on formulary, hold currently) - Consulted [facility], Dr. Harding, help appreciated. - Pamidronate Disodium 90 mg/ (Sodium Chloride) 510 mls @ 125 mls/hr IV ONCE ONE Chostochondritis - Tylenol 650mg PO Q6H PRN, mild pain Diabetes 09/04: blood sugar better controlled, will continue to monitor 09/03: glucose 174 09/02: Marked improvement today. Glucose down to 260 (from 401). - Resume home med - Lantus 40u HS - Home dosing for Apidra is 16u ACB, 30u ACL, 40u ACD; Not on formulary. Start with Novolog - 16u ACB, 30u ACL, 40u ACD; -Januvia 50mg PO qd; Metformin 1000mg PO qd -Lyrica 75mg PO qd -ISS - high dose HTN -Norvasc 10 mg PO DAILY [facility]K -Cozaar 100 mg PO DAILY [facility]K Epigastric Tenderness - resolved - Likely from vomiting on admission - Continue to monitor Electrolyte Imbalance - continue to monitor and replete as necessary Prophylaxis -Heart Healthy diet, carb consistent -SCDs -Heparin 5k u SC q8h All management per Dr. Huntley
--- NOTE | 2016-09-04 20:35 | CP.PCM.PN ---
Subjective - Date & Time of Evaluation Date of Evaluation: 09/04/16 Time of Evaluation: 18:30 - Subjective Subjective: Coughs at night Objective - Vital Signs/Intake and Output Vital Signs (last 24 hours): Temp Pulse Resp BP Pulse Ox 98.1 F 83 20 132/79 94 L 09/04/16 08:00 09/04/16 08:00 09/04/16 08:00 09/04/16 08:00 09/04/16 08:00 - Medications Medications: Current Medications Acetaminophen (Tylenol 325mg Tab) 650 mg PO Q6 PRN PRN Reason: Pain, Mild (1-3) Last Admin: 09/03/16 11:00 Dose: 650 mg Acetylcysteine (Acetylcysteine 20%) 4 ml INH RQ4 [facility] Last Admin: 09/04/16 20:17 Dose: Not Given Albuterol/Ipratropium (Duoneb 3 Mg/0.5 Mg (3 Ml) Ud) 3 ml IH RQ4 [facility] Last Admin: 09/04/16 20:17 Dose: 3 ml Amlodipine Besylate (Norvasc) 10 mg PO DAILY [facility] Last Admin: 09/04/16 09:32 Dose: 10 mg Aspirin (Aspirin Chewable) 81 mg PO DAILY [facility] Last Admin: 09/04/16 09:33 Dose: 81 mg Guaifenesin (Mucinex La) 600 mg PO BID [facility] Last Admin: 09/04/16 17:38 Dose: 600 mg Heparin Sodium (Porcine) (Heparin) 5,000 units SC Q8 [facility] Last Admin: 09/04/16 13:41 Dose: 5,000 units Ceftriaxone Sodium 1 gm/ (Sodium Chloride) 100 mls @ 100 mls/hr IVPB DAILY [facility] Last Admin: 09/04/16 09:32 Dose: 100 mls/hr Azithromycin 500 mg/ Sodium (Chloride) 250 mls @ 167 mls/hr IVPB Q24H [facility] Last Admin: 09/04/16 13:41 Dose: 167 mls/hr Insulin Aspart (Novolog) 16 unit SC ACB [facility] Last Admin: 09/04/16 08:56 Dose: 16 unit Insulin Aspart (Novolog) 30 unit SC ACL [facility] Last Admin: 09/04/16 13:40 Dose: 30 unit Insulin Aspart (Novolog) 40 unit SC ACS [facility] Last Admin: 09/04/16 17:38 Dose: 40 unit Insulin Aspart (Novolog) 0 unit SC ACHS [facility] PRN Reason: Protocol Last Admin: 09/04/16 17:38 Dose: 2 unit Insulin Glargine (Lantus) 40 unit SC HS [facility] Last Admin: 09/03/16 22:01 Dose: 40 units Losartan Potassium (Cozaar) 100 mg PO DAILY [facility] Last Admin: 09/04/16 09:32 Dose: 100 mg Metformin HCl (Glucophage) 1,000 mg PO DAILY [facility] Last Admin: 09/04/16 09:33 Dose: 1,000 mg Prednisone (Prednisone Tab) 10 mg PO BID [facility] Last Admin: 09/04/16 17:38 Dose: 10 mg Pregabalin (Lyrica) 75 mg PO DAILY [facility] Last Admin: 09/04/16 09:32 Dose: 75 mg Promethazine HCl/Codeine (Phenergan/Codeine Oral Syrup) 5 ml PO Q4 [facility] Last Admin: 09/04/16 15:34 Dose: 5 ml Fluticasone/Salmeterol (Advair Diskus 250/50) 1 puff INH RQ12 [facility] Last Admin: 09/04/16 20:15 Dose: 1 puff Sitagliptin Phosphate (Januvia) 50 mg PO DAILY [facility] Last Admin: 09/04/16 09:32 Dose: 50 mg - Labs Labs: 09/04/16 07:06 09/04/16 07:06 PT 12.1 SECONDS (9.7-12.2) 08/31/16 23:14 INR 1.1 08/31/16 23:14 APTT 23 SECONDS (21-34) 09/02/16 11:28 - Head Exam Head Exam: ATRAUMATIC - Eye Exam Eye Exam: Normal appearance - ENT Exam ENT Exam: Mucous Membranes Dry - Respiratory Exam Respiratory Exam: NORMAL BREATHING PATTERN - Cardiovascular Exam Cardiovascular Exam: +S1, +S2 - GI/Abdominal Exam GI & Abdominal Exam: Normal Bowel Sounds - Extremities Exam Extremities Exam: Normal Inspection Assessment and Plan (1) Anemia Assessment & Plan: chronic disease multiple myeloma, chemo on hold Status: Acute (2) Multiple myeloma Assessment & Plan: s/p bone marrow transplant Revlimid on hold until infection clears. Status: Acute
[2016-09-04] MEDS: (Lantus) Insulin Glargine, Recombinant SC SCH (21:54)
[2016-09-05] MEDS: Albuterol-Ipratrop 3 mg / 0.5 (3 ml) UD IH SCH ×7 (00:11→23:48)
[2016-09-05] MEDS: Acetylcysteine 20% Inhal Soln (4ml) INH SCH ×7 (00:11→23:48)
[2016-09-05] MEDS: Promethazine/Cod 6.25mg-10mg/5ml Syr UD PO SCH ×6 (01:54→23:42)
[2016-09-05] MEDS: Fluticasone-Salmeterol 250-50mcg Diskus INH SCH ×2 (08:00→19:45)
[2016-09-05] MEDS: (Novolog) Insulin Aspart, Recombinant 100 u/ml 10 ml vial SC SCH ×5 (08:16→21:32)
[2016-09-05 09:07] LABS: BASO % 0.2 % (0.0-2.0); EOS % 1.2 % (0.0-4.0); HEMATOCRIT 29.9 % (34.0-47.0); LYMPH # 0.8 K/uL (1.0-4.3); MEAN CELL VOLUME 89.3 fL (81.0-99.0); MEAN CORPUSCULAR HEMOGLOBIN 29.9 pg (27.0-31.0); MEAN CORPUSCULAR HGB CONC 33.5 g/dL (33.0-37.0); MEAN PLATELET VOLUME 7.2 fL (7.2-11.7); MONO # 0.5 K/uL (0.0-0.8); NRBC % 0.2 % (0.0-2.0); RED CELL DISTRIBUTION WIDTH 15.4 % (11.5-14.5); WHITE BLOOD COUNT 2.8 K/uL (4.8-10.8)
[2016-09-05 09:09] LABS: CHLORIDE 102 mmol/L (98-107)
[2016-09-05 09:10] LABS: POTASSIUM 4.1 mmol/L (3.6-5.2); SODIUM 134 mmol/L (132-148)
[2016-09-05 09:12] LABS: ALB/GLOB RATIO 0.9 (1.0-2.1); ALKALINE PHOSPHATASE 43 U/L (38-126); ALT/SGPT 13 U/L (9-52); AST/SGOT 11 U/L (14-36); BILIRUBIN,TOTAL 0.6 mg/dL (0.2-1.3); BLOOD UREA NITROGEN 13 mg/dL (7-17); CARBON DIOXIDE 22 mmol/L (22-30); GFR AFRICAN-AMERICAN > 60; GLUCOSE,RANDOM 236 mg/dL (65-105); PHOSPHOROUS 3.3 mg/dL (2.5-4.5); TOTAL PROTEIN 6.5 g/dL (6.3-8.3)
[2016-09-05 09:13] LABS: CALCIUM 8.6 mg/dl (8.6-10.4)
[2016-09-05] MEDS: guaiFENesin 600 mg ER Tab PO SCH (10:32)
[2016-09-05] MEDS: Azithromycin 500 MG in Sodium Chloride 0.9% 250 ML IVPB SCH (12:03)
[2016-09-05] MEDS: (Lantus) Insulin Glargine, Recombinant SC SCH (21:38)
--- NOTE | 2016-09-05 22:38 | CP.PCM.PN ---
<Bari Wahl - Last Filed: 09/07/16 17:43> Subjective - Date & Time of Evaluation Date of Evaluation: 09/05/16 Time of Evaluation: 08:35 - Subjective Subjective: PGY2 Medicine Note- Dr. Whitman's Service (covering Dr. Huntley) This is a late computer entry as EMR was down. Patient seen and examined with family at bedside. Patient reports cough is improving, but it feels as if the mucous is still difficult to expectorate, so she swallows it. She continues to refuse mucormist due to the unpleasant smell/ taste. Denies fevers, chills, chest pain, SOB, abdominal pain, n/v, d/c, or any additional complaints. Objective - Vital Signs/Intake and Output Vital Signs (last 24 hours): Temp Pulse Resp BP Pulse Ox 98 F 85 20 145/76 95 09/05/16 18:00 09/05/16 18:00 09/05/16 18:00 09/05/16 18:00 09/05/16 18:00 Intake and Output: 09/05/16 09/06/16 18:59 06:59 Intake Total 240 Balance 240 - Medications Medications: Current Medications Acetaminophen (Tylenol 325mg Tab) 650 mg PO Q6 PRN PRN Reason: Pain, Mild (1-3) Last Admin: 09/03/16 11:00 Dose: 650 mg Acetylcysteine (Acetylcysteine 20%) 4 ml INH RQ4 [facility] Last Admin: 09/05/16 19:15 Dose: Not Given Albuterol/Ipratropium (Duoneb 3 Mg/0.5 Mg (3 Ml) Ud) 3 ml IH RQ4 [facility] Last Admin: 09/05/16 19:15 Dose: 3 ml Amlodipine Besylate (Norvasc) 10 mg PO DAILY [facility] Last Admin: 09/05/16 10:33 Dose: 10 mg Aspirin (Aspirin Chewable) 81 mg PO DAILY [facility] Last Admin: 09/05/16 10:32 Dose: 81 mg Guaifenesin (Mucinex La) 600 mg PO BID [facility] Last Admin: 09/05/16 10:32 Dose: 600 mg Heparin Sodium (Porcine) (Heparin) 5,000 units SC Q8 [facility] Last Admin: 09/05/16 21:36 Dose: 5,000 units Ceftriaxone Sodium 1 gm/ (Sodium Chloride) 100 mls @ 100 mls/hr IVPB DAILY [facility] Last Admin: 09/05/16 10:35 Dose: 100 mls/hr Azithromycin 500 mg/ Sodium (Chloride) 250 mls @ 167 mls/hr IVPB Q24H [facility] Last Admin: 09/05/16 12:03 Dose: 167 mls/hr Insulin Aspart (Novolog) 16 unit SC ACB [facility] Last Admin: 09/05/16 08:16 Dose: 16 unit Insulin Aspart (Novolog) 30 unit SC ACL [facility] Last Admin: 09/05/16 12:06 Dose: 30 unit Insulin Aspart (Novolog) 40 unit SC ACS [facility] Last Admin: 09/04/16 17:38 Dose: 40 unit Insulin Aspart (Novolog) 0 unit SC ACHS [facility] PRN Reason: Protocol Last Admin: 09/05/16 21:32 Dose: Not Given Insulin Glargine (Lantus) 40 unit SC HS [facility] Last Admin: 09/05/16 21:38 Dose: 40 units Losartan Potassium (Cozaar) 100 mg PO DAILY [facility] Last Admin: 09/05/16 10:33 Dose: 100 mg Metformin HCl (Glucophage) 1,000 mg PO DAILY [facility] Last Admin: 09/05/16 10:32 Dose: 1,000 mg Prednisone (Prednisone Tab) 10 mg PO BID [facility] Last Admin: 09/05/16 10:33 Dose: 10 mg Pregabalin (Lyrica) 75 mg PO DAILY [facility] Last Admin: 09/05/16 10:33 Dose: 75 mg Promethazine HCl/Codeine (Phenergan/Codeine Oral Syrup) 5 ml PO Q4 [facility] Last Admin: 09/05/16 20:49 Dose: 5 ml Fluticasone/Salmeterol (Advair Diskus 250/50) 1 puff INH RQ12 [facility] Last Admin: 09/05/16 19:45 Dose: 1 puff Sitagliptin Phosphate (Januvia) 50 mg PO DAILY [facility] Last Admin: 09/05/16 10:32 Dose: 50 mg - Labs Labs: 09/05/16 08:49 09/05/16 08:49 PT 12.1 SECONDS (9.7-12.2) 08/31/16 23:14 INR 1.1 08/31/16 23:14 APTT 23 SECONDS (21-34) 09/02/16 11:28 - Additional Findings Additional findings: - Constitutional Appears: Non-toxic, No Acute Distress - Head Exam Head Exam: ATRAUMATIC, NORMOCEPHALIC - Eye Exam Eye Exam: EOMI - ENT Exam ENT Exam: Mucous Membranes Moist - Respiratory Exam Respiratory Exam: Normal Breath Sounds (improvement), Rhonchi (minimal), NORMAL BREATHING PATTERN. absent: Wheezes -Good air movement - Cardiovascular Exam Cardiovascular Exam: +S1, +S2 - GI/Abdominal Exam GI & Abdominal Exam: Soft, Normal Bowel Sounds. absent: Tenderness - Extremities Exam Extremities Exam: absent: Pedal Edema - Neurological Exam Neurological Exam: Alert, Awake - Psychiatric Exam Psychiatric exam: Normal Affect - Skin Skin Exam: Warm Assessment and Plan - Assessment and Plan (Free Text) Assessment: Multifocal Pneumonia 09/05: Continue Abx. WBC stable. BC neg x4days. Monitor. 09/04: CT chest: multifocal pneumonia, decreased mineralization bones, L1 sclerotic focus, 7mm; Sinus CT: negative for sinusitis continue zithromax, ceftriaxone promethazine syrup q4 scheduled per patient request- has difficulty asking nurse for medicine 09/03: IgE <2; + allergy studies negative thus far. Phenergan with Codein Q4, PRN cough. 09/02: Cough still non-productive. Continue Mucinex and add Mucormist with Duoneb administration Q4H. - CXR - Mild venous congestion. Patchy left basilar airspace opacity with small left pleural effusion. Nodular density at the left lung base. Biapical pleural thickening. Right hilar prominence. - Mucinex La 600 mg PO BID DK - Duoneb 3 ml IH RQ4 DK - Ceftriaxone Sodium 1 gm IVPB DAILY DK -Azithromycin 500 mg IVPB Q24H DK -Advair Diskus 250/50 1 puff INH RQ12 DK -Prednisone Tab 10 mg PO BID DK -BC negative -UC negative Neutropenia 09/05: WNL, was 29.1 on admission continue neutropenic precautions BC negative, UC negative, Ige negative. Hx Multiple Myeloma 09/02-09/05: Per Dr. Harding, hold Revlimid 15mg PO qd - until Abx are completed. - Revlimid 15mg PO qd (not on formulary, hold currently) - Consulted [facility], Dr. Harding, help appreciated. - Pamidronate Disodium 90 mg/ (Sodium Chloride) 510 mls @ 125 mls/hr IV ONCE ONE Chostochondritis - Tylenol 650mg PO Q6H PRN, mild pain Diabetes 09/04-09/05: glucose 236, blood sugar better controlled, will continue to monitor 09/03: glucose 174 09/02: Marked improvement today. Glucose down to 260 (from 401). - Resume home med - Lantus 40u HS - Home dosing for Apidra is 16u ACB, 30u ACL, 40u ACD; Not on formulary. Start with Novolog - 16u ACB, 30u ACL, 40u ACD; -Januvia 50mg PO qd; Metformin 1000mg PO qd -Lyrica 75mg PO qd -ISS - high dose HTN BP WNL, continue to monitor. -Norvasc 10 mg PO DAILY DK -Cozaar 100 mg PO DAILY DK Epigastric Tenderness - resolved - Likely from vomiting on admission - Continue to monitor Electrolyte Imbalance - continue to monitor and replete as necessary Prophylaxis -Heart Healthy diet, carb consistent -SCDs -Heparin 5k u SC q8h <Irving Whitman - Last Filed: 10/14/16 14:33> Objective - Vital Signs/Intake and Output Vital Signs (last 24 hours): Temp Pulse Resp BP Pulse Ox 97.4 F L 81 19 167/96 H 95 09/07/16 07:54 09/07/16 07:54 09/07/16 07:54 09/07/16 07:54 09/07/16 07:54 - Labs Labs: 09/07/16 08:22 09/07/16 08:22 PT 12.1 SECONDS (9.7-12.2) 08/31/16 23:14 INR 1.1 08/31/16 23:14 APTT 23 SECONDS (21-34) 09/02/16 11:28 Attending/Attestation - Attestation I have personally seen and examined this patient.: Yes I have fully participated in the care of the patient.: Yes I have reviewed all pertinent clinical information, including history, physical exam and plan: Yes Notes (Text): Patient seen and examined with the resident. Agree with the residents evaluation, assessment and plan. Multifocal Pneumonia Hx Multiple Myeloma Chostochondritis Diabetes uncontrolled HTN Epigastric Tenderness Electrolyte Imbalance
[2016-09-06] MEDS: Acetylcysteine 20% Inhal Soln (4ml) INH SCH ×4 (03:18→15:49)
[2016-09-06] MEDS: Albuterol-Ipratrop 3 mg / 0.5 (3 ml) UD IH SCH ×6 (03:18→19:23)
--- NOTE | 2016-09-06 04:05 | CP.PCM.PN ---
Subjective - Date & Time of Evaluation Date of Evaluation: 09/05/16 Time of Evaluation: 17:30 - Subjective Subjective: Has cough at night Objective - Vital Signs/Intake and Output Vital Signs (last 24 hours): Temp Pulse Resp BP Pulse Ox 97.6 F 83 18 166/79 H 98 09/06/16 00:17 09/06/16 00:17 09/06/16 00:17 09/06/16 00:17 09/06/16 00:17 Intake and Output: 09/05/16 09/06/16 18:59 06:59 Intake Total 240 Balance 240 - Medications Medications: Current Medications Acetaminophen (Tylenol 325mg Tab) 650 mg PO Q6 PRN PRN Reason: Pain, Mild (1-3) Last Admin: 09/03/16 11:00 Dose: 650 mg Acetylcysteine (Acetylcysteine 20%) 4 ml INH RQ4 [facility] Last Admin: 09/06/16 03:18 Dose: Not Given Albuterol/Ipratropium (Duoneb 3 Mg/0.5 Mg (3 Ml) Ud) 3 ml IH RQ4 [facility] Last Admin: 09/06/16 03:18 Dose: Not Given Amlodipine Besylate (Norvasc) 10 mg PO DAILY [facility] Last Admin: 09/05/16 10:33 Dose: 10 mg Aspirin (Aspirin Chewable) 81 mg PO DAILY [facility] Last Admin: 09/05/16 10:32 Dose: 81 mg Guaifenesin (Mucinex La) 600 mg PO BID [facility] Last Admin: 09/05/16 10:32 Dose: 600 mg Heparin Sodium (Porcine) (Heparin) 5,000 units SC Q8 [facility] Last Admin: 09/05/16 21:36 Dose: 5,000 units Ceftriaxone Sodium 1 gm/ (Sodium Chloride) 100 mls @ 100 mls/hr IVPB DAILY [facility] Last Admin: 09/05/16 10:35 Dose: 100 mls/hr Azithromycin 500 mg/ Sodium (Chloride) 250 mls @ 167 mls/hr IVPB Q24H [facility] Last Admin: 09/05/16 12:03 Dose: 167 mls/hr Insulin Aspart (Novolog) 16 unit SC ACB [facility] Last Admin: 09/05/16 08:16 Dose: 16 unit Insulin Aspart (Novolog) 30 unit SC ACL [facility] Last Admin: 09/05/16 12:06 Dose: 30 unit Insulin Aspart (Novolog) 40 unit SC ACS [facility] Last Admin: 09/04/16 17:38 Dose: 40 unit Insulin Aspart (Novolog) 0 unit SC ACHS [facility] PRN Reason: Protocol Last Admin: 09/05/16 21:32 Dose: Not Given Insulin Glargine (Lantus) 40 unit SC HS [facility] Last Admin: 09/05/16 21:38 Dose: 40 units Losartan Potassium (Cozaar) 100 mg PO DAILY [facility] Last Admin: 09/05/16 10:33 Dose: 100 mg Metformin HCl (Glucophage) 1,000 mg PO DAILY [facility] Last Admin: 09/05/16 10:32 Dose: 1,000 mg Prednisone (Prednisone Tab) 10 mg PO BID [facility] Last Admin: 09/05/16 10:33 Dose: 10 mg Pregabalin (Lyrica) 75 mg PO DAILY [facility] Last Admin: 09/05/16 10:33 Dose: 75 mg Promethazine HCl/Codeine (Phenergan/Codeine Oral Syrup) 5 ml PO Q4 [facility] Last Admin: 09/05/16 23:42 Dose: 5 ml Fluticasone/Salmeterol (Advair Diskus 250/50) 1 puff INH RQ12 [facility] Last Admin: 09/05/16 19:45 Dose: 1 puff Sitagliptin Phosphate (Januvia) 50 mg PO DAILY [facility] Last Admin: 09/05/16 10:32 Dose: 50 mg - Labs Labs: 09/05/16 08:49 09/05/16 08:49 PT 12.1 SECONDS (9.7-12.2) 08/31/16 23:14 INR 1.1 08/31/16 23:14 APTT 23 SECONDS (21-34) 09/02/16 11:28 - Head Exam Head Exam: ATRAUMATIC - Eye Exam Eye Exam: Normal appearance - ENT Exam ENT Exam: Mucous Membranes Dry - Respiratory Exam Respiratory Exam: NORMAL BREATHING PATTERN - Cardiovascular Exam Cardiovascular Exam: +S1, +S2 - GI/Abdominal Exam GI & Abdominal Exam: Normal Bowel Sounds - Extremities Exam Extremities Exam: Normal Inspection Assessment and Plan (1) Anemia Assessment & Plan: chronic disease chemotherapy on hold Status: Acute (2) Multiple myeloma Assessment & Plan: s/p bone marrow transplant maintenance Revlimid on hold Status: Acute
[2016-09-06] MEDS: Promethazine/Cod 6.25mg-10mg/5ml Syr UD PO SCH ×6 (05:08→23:39)
[2016-09-06 07:18] LABS: BASO % 0.3 % (0.0-2.0); EOS % 0.3 % (0.0-4.0); HEMATOCRIT 29.8 % (34.0-47.0); LYMPH # 0.7 K/uL (1.0-4.3); LYMPH % 28.6 % (20.0-40.0); MEAN CELL VOLUME 90.5 fL (81.0-99.0); MEAN CORPUSCULAR HGB CONC 33.1 g/dL (33.0-37.0); MEAN PLATELET VOLUME 7.3 fL (7.2-11.7); MONO # 0.4 K/uL (0.0-0.8); MONO % 16.6 % (0.0-10.0); RED CELL DISTRIBUTION WIDTH 15.3 % (11.5-14.5); WHITE BLOOD COUNT 2.3 K/uL (4.8-10.8)
[2016-09-06] MEDS: (Novolog) Insulin Aspart, Recombinant 100 u/ml 10 ml vial SC SCH ×8 (08:30→21:38)
[2016-09-06] MEDS: Fluticasone-Salmeterol 250-50mcg Diskus INH SCH ×2 (08:34→19:23)
[2016-09-06 08:36] LABS: CHLORIDE 103 mmol/L (98-107); POTASSIUM 4.3 mmol/L (3.6-5.2); SODIUM 135 mmol/L (132-148)
[2016-09-06 08:38] LABS: ALB/GLOB RATIO 0.9 (1.0-2.1); AST/SGOT 11 U/L (14-36); BILIRUBIN,TOTAL 0.4 mg/dL (0.2-1.3); CARBON DIOXIDE 22 mmol/L (22-30); GFR AFRICAN-AMERICAN > 60; TOTAL PROTEIN 6.4 g/dL (6.3-8.3)
[2016-09-06 08:39] LABS: ALKALINE PHOSPHATASE 38 U/L (38-126); ALT/SGPT 13 U/L (9-52); BLOOD UREA NITROGEN 18 mg/dL (7-17); CALCIUM 9.1 mg/dl (8.6-10.4); GLUCOSE,RANDOM 289 mg/dL (65-105); PHOSPHOROUS 4.4 mg/dL (2.5-4.5)
[2016-09-06] MEDS: guaiFENesin 600 mg ER Tab PO SCH ×2 (09:22→17:29)
[2016-09-06] MEDS: Azithromycin 500 MG in Sodium Chloride 0.9% 250 ML IVPB SCH (13:08)
--- NOTE | 2016-09-06 17:34 | CP.PCM.PN ---
<Bari Wahl - Last Filed: 09/06/16 21:10> Subjective - Date & Time of Evaluation Date of Evaluation: 09/06/16 Time of Evaluation: 08:50 - Subjective Subjective: PGY2 Medicine Note- Dr. Whitman's Service (covering Dr. Huntley) Patient seen and examined with family at bedside. Patient reports cough is much improved today. She still experiences mild mucous production, but reports the breathing treatments and mucinex are helping. Denies fevers, chills, chest pain, SOB, abdominal pain, n/v, d/c, or any additional complaints. Objective - Vital Signs/Intake and Output Vital Signs (last 24 hours): Temp Pulse Resp BP Pulse Ox 98.5 F 112 H 20 148/79 96 09/06/16 16:58 09/06/16 16:58 09/06/16 16:58 09/06/16 16:58 09/06/16 16:58 Intake and Output: 09/06/16 09/06/16 06:59 18:59 Intake Total 240 Balance 240 - Medications Medications: Current Medications Acetaminophen (Tylenol 325mg Tab) 650 mg PO Q6 PRN PRN Reason: Pain, Mild (1-3) Last Admin: 09/03/16 11:00 Dose: 650 mg Acetylcysteine (Acetylcysteine 20%) 4 ml INH RQ4 [facility] Last Admin: 09/06/16 15:49 Dose: Not Given Albuterol/Ipratropium (Duoneb 3 Mg/0.5 Mg (3 Ml) Ud) 3 ml IH RQ4 [facility] Last Admin: 09/06/16 15:49 Dose: 3 ml Amlodipine Besylate (Norvasc) 10 mg PO DAILY [facility] Last Admin: 09/06/16 09:22 Dose: 10 mg Aspirin (Aspirin Chewable) 81 mg PO DAILY [facility] Last Admin: 09/06/16 09:22 Dose: 81 mg Guaifenesin (Mucinex La) 600 mg PO BID [facility] Last Admin: 09/06/16 17:29 Dose: 600 mg Heparin Sodium (Porcine) (Heparin) 5,000 units SC Q8 [facility] Last Admin: 09/06/16 13:09 Dose: 5,000 units Ceftriaxone Sodium 1 gm/ (Sodium Chloride) 100 mls @ 100 mls/hr IVPB DAILY [facility] Last Admin: 09/06/16 09:20 Dose: 100 mls/hr Azithromycin 500 mg/ Sodium (Chloride) 250 mls @ 167 mls/hr IVPB Q24H [facility] Last Admin: 09/06/16 13:08 Dose: 167 mls/hr Insulin Aspart (Novolog) 16 unit SC ACB [facility] Last Admin: 09/06/16 08:31 Dose: 16 unit Insulin Aspart (Novolog) 30 unit SC ACL [facility] Last Admin: 09/06/16 13:08 Dose: 30 unit Insulin Aspart (Novolog) 40 unit SC ACS [facility] Last Admin: 09/06/16 17:28 Dose: 40 unit Insulin Aspart (Novolog) 0 unit SC ACHS [facility] PRN Reason: Protocol Last Admin: 09/06/16 17:28 Dose: 4 unit Insulin Glargine (Lantus) 50 unit SC HS [facility] Losartan Potassium (Cozaar) 100 mg PO DAILY [facility] Last Admin: 09/06/16 09:22 Dose: 100 mg Metformin HCl (Glucophage) 1,000 mg PO DAILY [facility] Last Admin: 09/06/16 09:22 Dose: 1,000 mg Prednisone (Prednisone Tab) 10 mg PO BID [facility] Last Admin: 09/06/16 17:29 Dose: 10 mg Pregabalin (Lyrica) 75 mg PO DAILY [facility] Last Admin: 09/06/16 09:22 Dose: 75 mg Promethazine HCl/Codeine (Phenergan/Codeine Oral Syrup) 5 ml PO Q4 [facility] Last Admin: 09/06/16 16:10 Dose: 5 ml Fluticasone/Salmeterol (Advair Diskus 250/50) 1 puff INH RQ12 [facility] Last Admin: 09/06/16 08:34 Dose: 1 puff Sitagliptin Phosphate (Januvia) 50 mg PO DAILY [facility] Last Admin: 09/06/16 09:22 Dose: 50 mg - Labs Labs: 09/06/16 06:51 09/06/16 06:51 PT 12.1 SECONDS (9.7-12.2) 08/31/16 23:14 INR 1.1 08/31/16 23:14 APTT 23 SECONDS (21-34) 09/02/16 11:28 - Additional Findings Additional findings: - Constitutional Appears: Non-toxic, No Acute Distress - Head Exam Head Exam: ATRAUMATIC, NORMOCEPHALIC - Eye Exam Eye Exam: EOMI - ENT Exam ENT Exam: Mucous Membranes Moist - Respiratory Exam Respiratory Exam: Clear to Auscultation, Wheezes (mild), NORMAL BREATHING PATTERN. absent: Rales, Rhonchi - Cardiovascular Exam Cardiovascular Exam: +S1, +S2 - GI/Abdominal Exam GI & Abdominal Exam: Soft, Normal Bowel Sounds. absent: Tenderness - Extremities Exam Extremities Exam: absent: Pedal Edema - Neurological Exam Neurological Exam: Alert, Awake - Psychiatric Exam Psychiatric exam: Normal Affect - Skin Skin Exam: Warm, Dry, Intact Assessment and Plan - Assessment and Plan (Free Text) Assessment: Multifocal Pneumonia 09/06: Continue Abx. WBC 2.3. BC neg x5days. Monitor. 09/04: CT chest: multifocal pneumonia, decreased mineralization bones, L1 sclerotic focus, 7mm; Sinus CT: negative for sinusitis continue zithromax, ceftriaxone promethazine syrup q4 scheduled per patient request- has difficulty asking nurse for medicine 09/03: IgE <2; + allergy studies negative thus far. Phenergan with Codein Q4, PRN cough. 09/02: Cough still non-productive. Continue Mucinex and add Mucormist with Duoneb administration Q4H. - CXR - Mild venous congestion. Patchy left basilar airspace opacity with small left pleural effusion. Nodular density at the left lung base. Biapical pleural thickening. Right hilar prominence. - Mucinex La 600 mg PO BID DK - Duoneb 3 ml IH RQ4 DK - Ceftriaxone Sodium 1 gm IVPB DAILY DK -Azithromycin 500 mg IVPB Q24H DK -Advair Diskus 250/50 1 puff INH RQ12 DK -Prednisone Tab 10 mg PO BID DK -BC negative -UC negative Neutropenia 54.2% today, was 29.1 on admission continue neutropenic precautions Hx Multiple Myeloma 09/02-09/06: Per Dr. Harding, hold Revlimid 15mg PO qd - until Abx are completed. - Revlimid 15mg PO qd (not on formulary, hold currently) - Consulted [facility], Dr. Harding, help appreciated. - Pamidronate Disodium 90 mg/ (Sodium Chloride) 510 mls @ 125 mls/hr IV ONCE ONE Chostochondritis - Tylenol 650mg PO Q6H PRN, mild pain Diabetes 09/06: glucose 289. Increase to Lantus 50u SC HS. Novolog - 16u ACB, 30u ACL, 40u ACD; 09/04: blood sugar better controlled, will continue to monitor 09/03: glucose 174 09/02: Marked improvement today. Glucose down to 260 (from 401). - Resume home med - Lantus 40u HS - Home dosing for Apidra is 16u ACB, 30u ACL, 40u ACD; Not on formulary. Start with Novolog - 16u ACB, 30u ACL, 40u ACD; -Januvia 50mg PO qd; Metformin 1000mg PO qd -Lyrica 75mg PO qd -ISS - high dose HTN -Norvasc 10 mg PO DAILY DK -Cozaar 100 mg PO DAILY DK Epigastric Tenderness - resolved - Likely from vomiting on admission - Continue to monitor Electrolyte Imbalance - continue to monitor and replete as necessary Prophylaxis -Heart Healthy diet, carb consistent -SCDs -Heparin 5k u SC q8h Disposition: Likely discharge 09/07. <Irving Whitman - Last Filed: 10/14/16 14:33> Objective - Vital Signs/Intake and Output Vital Signs (last 24 hours): Temp Pulse Resp BP Pulse Ox 97.4 F L 81 19 167/96 H 95 09/07/16 07:54 09/07/16 07:54 09/07/16 07:54 09/07/16 07:54 09/07/16 07:54 - Labs Labs: 09/07/16 08:22 09/07/16 08:22 PT 12.1 SECONDS (9.7-12.2) 08/31/16 23:14 INR 1.1 08/31/16 23:14 APTT 23 SECONDS (21-34) 09/02/16 11:28 Attending/Attestation - Attestation I have personally seen and examined this patient.: Yes I have fully participated in the care of the patient.: Yes I have reviewed all pertinent clinical information, including history, physical exam and plan: Yes Notes (Text): Patient seen and examined with the resident. Agree with the residents evaluation, assessment and plan. Multifocal Pneumonia Hx Multiple Myeloma Chostochondritis Diabetes uncontrolled HTN Epigastric Tenderness Electrolyte Imbalance
[2016-09-06] MEDS ORDERED: (Lantus) Insulin Glargine, Recombinant SC SCH (22:00)
[2016-09-07] MEDS: Albuterol-Ipratrop 3 mg / 0.5 (3 ml) UD IH SCH ×4 (00:57→12:48)
[2016-09-07] MEDS: Acetylcysteine 20% Inhal Soln (4ml) INH SCH ×3 (00:59→13:53)
[2016-09-07] MEDS: Promethazine/Cod 6.25mg-10mg/5ml Syr UD PO SCH ×3 (05:14→12:47)
[2016-09-07 07:55] VITALS: BP 167/96; PULSE 81; RESP 19; TEMP 97.4; O2SAT 95
[2016-09-07 08:32] LABS: BASO % 0.5 % (0.0-2.0); EOS % 0.4 % (0.0-4.0); HEMATOCRIT 29.8 % (34.0-47.0); LYMPH % 33.2 % (20.0-40.0); MEAN CELL VOLUME 89.9 fL (81.0-99.0); MEAN CORPUSCULAR HGB CONC 33.4 g/dL (33.0-37.0); MONO # 0.4 K/uL (0.0-0.8); MONO % 14.6 % (0.0-10.0); NRBC % 0.2 % (0.0-2.0); RED CELL DISTRIBUTION WIDTH 15.8 % (11.5-14.5)
[2016-09-07] MEDS: (Novolog) Insulin Aspart, Recombinant 100 u/ml 10 ml vial SC SCH ×4 (08:37→12:48)
[2016-09-07 08:38] LABS: CHLORIDE 100 mmol/L (98-107)
[2016-09-07 08:39] LABS: POTASSIUM 3.7 mmol/L (3.6-5.2); SODIUM 135 mmol/L (132-148)
[2016-09-07 08:41] LABS: ALB/GLOB RATIO 0.9 (1.0-2.1); ALKALINE PHOSPHATASE 39 U/L (38-126); AST/SGOT 13 U/L (14-36); BILIRUBIN,TOTAL 0.5 mg/dL (0.2-1.3); BLOOD UREA NITROGEN 18 mg/dL (7-17); CARBON DIOXIDE 25 mmol/L (22-30); GFR AFRICAN-AMERICAN > 60; GLUCOSE,RANDOM 197 mg/dL (65-105); TOTAL PROTEIN 6.4 g/dL (6.3-8.3)
[2016-09-07 08:43] LABS: ALT/SGPT 16 U/L (9-52); MAGNESIUM 1.8 mg/dL (1.6-2.3); PHOSPHOROUS 4.5 mg/dL (2.5-4.5)
[2016-09-07] MEDS: Fluticasone-Salmeterol 250-50mcg Diskus INH SCH (08:45)
[2016-09-07] MEDS: guaiFENesin 600 mg ER Tab PO SCH (10:04)
[2016-09-07] MEDS ORDERED: Saccharomyces Boulardi 250 mg Cap PO SCH (12:30)
[2016-09-07] MEDS ORDERED: Pneumococcal 23-Valent Vaccine IM ONE (13:30)
--- NOTE | 2016-09-07 16:09 | CP.PCM.DIS ---
<Socorro Mcclure - Last Filed: 09/07/16 16:06> Provider - Provider Date of Admission: 09/01/16 03:10 Attending physician: Irving Whitman MD Primary care physician: Dr. Huntley Consults: Hemeatology/Oncology: Dr. Harding Time Spent in preparation of Discharge (in minutes): 50 Diagnosis - Discharge Diagnosis (1) Diabetes mellitus Status: Chronic (2) HTN (hypertension) Status: Chronic (3) Anemia Status: Chronic (4) Neutropenia Status: Chronic (5) Pneumonia Status: Chronic Hospital Course - Lab Results Lab Results: Micro Results 09/01/16 06:00 Urine,Random Urine Culture - Final No Growth (<1,000 CFU/ML) Most Recent Lab Values WBC 3.0 K/uL (4.8-10.8) L 09/07/16 08:22 RBC 3.31 Mil/uL (3.80-5.20) L 09/07/16 08:22 Hgb 9.9 g/dL (11.0-16.0) L 09/07/16 08:22 Hct 29.8 % (34.0-47.0) L 09/07/16 08:22 MCV 89.9 fL (81.0-99.0) 09/07/16 08:22 MCH 30.0 pg (27.0-31.0) 09/07/16 08:22 MCHC 33.4 g/dL (33.0-37.0) 09/07/16 08:22 RDW 15.8 % (11.5-14.5) H 09/07/16 08:22 Plt Count 191 K/uL (130-400) 09/07/16 08:22 MPV 7.0 fL (7.2-11.7) L 09/07/16 08:22 Neut % (Auto) 51.3 % (50.0-75.0) 09/07/16 08:22 Lymph % (Auto) 33.2 % (20.0-40.0) 09/07/16 08:22 [place] % (Auto) 14.6 % (0.0-10.0) H 09/07/16 08:22 Eos % (Auto) 0.4 % (0.0-4.0) 09/07/16 08:22 Baso % (Auto) 0.5 % (0.0-2.0) 09/07/16 08:22 Neut # 1.5 K/uL (1.8-7.0) L 09/07/16 08:22 Lymph # 1.0 K/uL (1.0-4.3) 09/07/16 08:22 [place] # 0.4 K/uL (0.0-0.8) 09/07/16 08:22 Eos # 0.0 K/uL (0.0-0.7) 09/07/16 08:22 Baso # 0.0 K/uL (0.0-0.2) 09/07/16 08:22 Neutrophils % (Manual) 25 % (50-75) L 08/31/16 23:14 Band Neutrophils % 7 % (0-2) H 08/31/16 23:14 Lymphocytes % (Manual) 39 % (20-40) 08/31/16 23:14 Monocytes % (Manual) 24 % (0-10) H 08/31/16 23:14 Eosinophils % (Manual) 5 % (0-4) H 08/31/16 23:14 Platelet Estimate Normal (NORMAL) 08/31/16 23:14 Polychromasia Slight 08/31/16 23:14 Anisocytosis (manual) Slight 08/31/16 23:14 Ovalocytes Slight 08/31/16 23:14 PT 12.1 SECONDS (9.7-12.2) 08/31/16 23:14 INR 1.1 08/31/16 23:14 APTT 23 SECONDS (21-34) 09/02/16 11:28 Puncture Site R rad 09/01/16 00:02 pCO2 33 mm/Hg (35-45) L 09/01/16 00:02 pO2 101 mm/Hg (80-100) H 09/01/16 00:02 HCO3 31.3 mmol/L (21-28) H 09/01/16 00:02 ABG pH 7.57 (7.35-7.45) H 09/01/16 00:02 ABG Total CO2 31.2 mmol/L (22-28) H 09/01/16 00:02 ABG O2 Saturation 99.1 % (95-98) H 09/01/16 00:02 ABG Base Excess 8.1 mmol/L (-2.0-3.0) H 09/01/16 00:02 Jagjit Test Pos 09/01/16 00:02 ABG Potassium 2.3 mmol/L (3.6-5.2) L* 09/01/16 00:02 Sodium 133.0 mmol/l (132-148) 09/01/16 00:02 Chloride 100.0 mmol/L (98-107) 09/01/16 00:02 Glucose 179 mg/dl (65-105) H 09/01/16 00:02 Lactate 1.9 mmol/L (0.7-2.1) 09/01/16 00:02 Liter Flow 5.0 09/01/16 00:02 Crit Value Called To Dr bahena 09/01/16 00:02 Crit Value Called By Makayla michel rt 09/01/16 00:02 Crit Value Read Back Y 09/01/16 00:02 Blood Gas Notified Time 10 09/01/16 00:02 Sodium 135 mmol/L (132-148) 09/07/16 08:22 Potassium 3.7 mmol/L (3.6-5.2) 09/07/16 08:22 Chloride 100 mmol/L (98-107) 09/07/16 08:22 Carbon Dioxide 25 mmol/L (22-30) 09/07/16 08:22 Anion Gap 14 (10-20) 09/07/16 08:22 BUN 18 mg/dL (7-17) H 09/07/16 08:22 Creatinine 0.8 MG/DL (0.7-1.2) 09/07/16 08:22 Est GFR ( Amer) > 60 09/07/16 08:22 Est GFR (Non-Af Amer) > 60 09/07/16 08:22 POC Glucose (mg/dL) 342 mg/dL (65-110) H 09/07/16 11:10 Random Glucose 197 mg/dL (65-105) H 09/07/16 08:22 Calcium 9.0 mg/dl (8.6-10.4) 09/07/16 08:22 Phosphorus 4.5 mg/dL (2.5-4.5) 09/07/16 08:22 Magnesium 1.8 mg/dL (1.6-2.3) 09/07/16 08:22 Total Bilirubin 0.5 mg/dL (0.2-1.3) 09/07/16 08:22 AST 13 U/L (14-36) L 09/07/16 08:22 ALT 16 U/L (9-52) 09/07/16 08:22 Alkaline Phosphatase 39 U/L (38-126) 09/07/16 08:22 Total Creatine Kinase 250 U/L (30-135) H 08/31/16 23:14 CK-MB (Mass) 1.26 ng/mL (0.0-3.38) 08/31/16 23:14 Troponin I, Quant < 0.0120 ng/mL (0.00-0.120) 08/31/16 23:14 NT-Pro-B Natriuret Pep 425 pg/mL (0-900) 08/31/16 23:14 Total Protein 6.4 g/dL (6.3-8.3) 09/07/16 08:22 Albumin 3.1 g/dL (3.5-5.0) L 09/07/16 08:22 Globulin 3.3 gm/dL (2.2-3.9) 09/07/16 08:22 Albumin/Globulin Ratio 0.9 (1.0-2.1) L 09/07/16 08:22 [place] Allergen IgE Ab <0.10 kU/L (<0.10) 09/02/16 14:10 [place] Dugger Class 0 09/02/16 14:10 [place] Allergen IgE Ab <0.10 kU/L (<0.10) 09/02/16 14:10 [place] Dugger Class 0 09/02/16 14:10 Codfish Allergen IgE Ab <0.10 kU/L (<0.10) 09/02/16 14:10 Codfish Dugger Class 0 09/02/16 14:10 Egg White IgE Ab <0.10 kU/L (<0.10) 09/02/16 14:10 Egg White Dugger Class 0 09/02/16 14:10 [place]elnut Allergen IgE <0.10 kU/L (<0.10) 09/02/16 14:10 [place] Dugger Class 0 09/02/16 14:10 Milk Allergen IgE Ab <0.10 kU/L (<0.10) 09/02/16 14:10 Milk Dugger Class 0 09/02/16 14:10 Peanut Allergen IgE Ab <0.10 kU/L (<0.10) 09/02/16 14:10 Peanut Dugger Class 0 09/02/16 14:10 [place] Allergen IgE Ab <0.10 kU/L (<0.10) 09/02/16 14:10 [place] Convention Class 0 09/02/16 14:10 [place] Allergen IgE Ab <0.10 kU/L (<0.10) 09/02/16 14:10 [place] Dugger Class 0 09/02/16 14:10 Sesame Seed IgE Ab <0.10 kU/L (<0.10) 09/02/16 14:10 Sesame Seed Dugger Cls 0 09/02/16 14:10 Shrimp Allergen IgE Ab <0.10 kU/L (<0.10) 09/02/16 14:10 Shrimp Dugger Class 0 09/02/16 14:10 Soybean Allergen IgE <0.10 kU/L (<0.10) 09/02/16 14:10 Soybean Dugger Class 0 09/02/16 14:10 Tuna Conventional Clss 0 09/02/16 14:10 [place] Allergen IgE Ab <0.10 kU/L (<0.10) 09/02/16 14:10 [place] Dugger Class 0 09/02/16 14:10 Wheat Allergen IgE Ab <0.10 kU/L (<0.10) 09/02/16 14:10 Wheat Dugger Class 0 09/02/16 14:10 A. tenuis Allergen IgE <0.10 kU/L (<0.10) 09/02/16 14:10 A. tenuis Conven Class 0 09/02/16 14:10 Aspergillus fumigatus <0.10 kU/L (<0.10) 09/02/16 14:10 A. fumigatus ASM Class 0 09/02/16 14:10 Cladosporium herbarum <0.10 kU/L (<0.10) 09/02/16 14:10 C. herbarum ASM Class 0 09/02/16 14:10 D. farinae IgE Class 0 09/02/16 14:10 D. farinae Allrgen IgE <0.10 kU/L (<0.10) 09/02/16 14:10 D. pteronyssinus Class 0 09/02/16 14:10 D. pteronyssinus IgE <0.10 kU/L (<0.10) 09/02/16 14:10 Penicillium notatum <0.10 kU/L (<0.10) 09/02/16 14:10 P, notatum ASM Class 0 09/02/16 14:10 Birch Dugger Class 0 09/02/16 14:10 [place] Tree Allrg <0.10 kU/L (<0.10) 09/02/16 14:10 [place] Conven Cls 0 09/02/16 14:10 [place] Tree Allergen <0.10 kU/L (<0.10) 09/02/16 14:10 Elm Dugger Class 0 09/02/16 14:10 Maple ([place]) Allg <0.10 kU/L (<0.10) 09/02/16 14:10 Maple Convention Clss 0 09/02/16 14:10 [place] Tree Allerg <0.10 kU/L (<0.10) 09/02/16 14:10 [place] Dugger Class 0 09/02/16 14:10 [place] Dugger Class 0 09/02/16 14:10 [place] Tree Allergen <0.10 kU/L (<0.10) 09/02/16 14:10 [place] Tree ASM Class 0 09/02/16 14:10 [place] Allergen <0.10 kU/L (<0.10) 09/02/16 14:10 [place] Tree Allergen <0.10 kU/L (<0.10) 09/02/16 14:10 [place] Dugger Class 0 09/02/16 14:10 [place] Tree Allergen <0.10 kU/L (<0.10) 09/02/16 14:10 [place] Dugger Class 0 09/02/16 14:10 [place] Tree Allerg <0.10 kU/L (<0.10) 09/02/16 14:10 [place] Dugger Clss 0 09/02/16 14:10 White [place] Allergen <0.10 kU/L (<0.10) 09/02/16 14:10 [place] Grass Allergen <0.10 kU/L (<0.10) 09/02/16 14:10 [place] Grass Dugger Cl 0 09/02/16 14:10 [place] Grass Allergen <0.10 kU/L (<0.10) 09/02/16 14:10 [place] Grass Cnvnt Cls 0 09/02/16 14:10 Common Pigweed Allerg <0.10 kU/L (<0.10) 09/02/16 14:10 Common Ragweed Allergen <0.10 kU/L (<0.10) 09/02/16 14:10 Comm Ragweed Cnvnt Cls 0 09/02/16 14:10 Mugwort Allergen <0.10 kU/L (<0.10) 09/02/16 14:10 Mugwort Conventional 0 09/02/16 14:10 Pigweed Conventional 0 09/02/16 14:10 [place] Allergen <0.10 kU/L (<0.10) 09/02/16 14:10 [place] Conven Cls 0 09/02/16 14:10 Cat [place] Allergen <0.10 kU/L (<0.10) 09/02/16 14:10 Cat Dander Dugger Class 0 09/02/16 14:10 Dog Dander IgE Allergen <0.10 kU/L (<0.10) 09/02/16 14:10 Dog Dander Dugger Cls 0 09/02/16 14:10 Mouse Urine Allergen <0.10 kU/L (<0.10) 09/02/16 14:10 Mouse Urine Conven Clss 0 09/02/16 14:10 Cockroach Allergen <0.10 kU/L (<0.10) 09/02/16 14:10 Cockroach Dugger Clss 0 09/02/16 14:10 [place] IgE Ab <0.10 kU/L (<0.10) 09/02/16 14:10 [place] H[place] ASM 0 09/02/16 14:10 Arterial Blood Potassium 2.3 mmol/L (3.6-5.2) L* 09/01/16 00:02 Urine Color Yellow (YELLOW) 09/01/16 03:30 Urine Clarity Clear (Clear) 09/01/16 03:30 Urine pH 5.0 (5.0-8.0) 09/01/16 03:30 Ur Specific [place] 1.013 (1.003-1.030) 09/01/16 03:30 Urine Protein 1+ mg/dL (NEGATIVE) H 09/01/16 03:30 Urine Glucose (UA) 2+ mg/dL (Normal) H 09/01/16 03:30 Urine Ketones Negative mg/dL (NEGATIVE) 09/01/16 03:30 Urine Blood Negative (NEGATIVE) 09/01/16 03:30 Urine Nitrate Negative (NEGATIVE) 09/01/16 03:30 Urine Bilirubin Negative (NEGATIVE) 09/01/16 03:30 Urine Urobilinogen Normal mg/dL (0.2-1.0) 09/01/16 03:30 Ur Leukocyte Esterase Neg [place]/uL (Negative) 09/01/16 03:30 Urine WBC (Auto) 1 /hpf (0-5) 09/01/16 03:30 Ur Squamous Epith Cells 1 /hpf (0-5) 09/01/16 03:30 IgE <2 kU/L (<yn=519) 09/02/16 14:10 - Hospital Course Hospital Course: 56 year old female with past medical history of multiple myeloma, HTN, DM, leukopenia, anemia is admitted to hospital for shortness of breath due to PNA. On admission, patient was found to have WBC count of 2.0 with neutrophil count of 29.1%. She was placed on neutorpenic precautions. On admission, CXR showed patchy left basilar airspace opacity with small left pleural effusion. Patient had CT of chest done which showed pneumonia. Patient was started on IV antibiotics. Patient's oncologist was consulted and recommended holding patient chemotherapy drug (Revlimid). Patient's symptoms improved and WBC count returned to baseline. After speaking with patient's oncologist, Dr. Harding , patient is to restart chemo drug once antibiotics course is completed. Patient has been explained this in details. Patient is discharged on Azithromycin 500 mg po qd for 7 days. During the hospital stay, patient was found ot have uncontrolled blood sugars. Patient's lantus dose was increased to 50 units and she was started on Januvia and metformin. Patient is asked to follow up with PMD upon discharge. - Date & Time of H&P Date of H&P: 09/07/16 Time of H&P: 16:09 Discharge Exam - Head Exam Head Exam: ATRAUMATIC - Eye Exam Eye Exam: EOMI - Respiratory Exam Respiratory Exam: Clear to PA & Lateral, NORMAL BREATHING PATTERN. absent: Accessory Muscle Use, Rales, Rhonchi, Wheezes, Respiratory Distress - Cardiovascular Exam Cardiovascular Exam: REGULAR RHYTHM, +S1, +S2. absent: Gallop, Rubs, Systolic Murmur - GI/Abdominal Exam GI & Abdominal Exam: Normal Bowel Sounds, Soft, Unremarkable. absent: Distended , Firm, Guarding, Rigid - Extremities Exam Additional comments: no edema or tenderness - Neurological Exam Neurological exam: Alert, Oriented x3 - Psychiatric Exam Psychiatric exam: Normal Affect, Normal Mood - Skin Skin Exam: Dry, Intact, Normal Color, Warm Discharge Plan - Discharge Medications Prescriptions: RX: Amlodipine/Valsartan [Exforge 10-160 mg Tablet] 1 tab PO DAILY #30 RX: Aspirin [Aspirin Chewable] 81 mg PO DAILY #30 RX: Azithromycin [Zithromax Tri-Wang] 500 mg PO DAILY #7 tablet RX: Fluticasone/Salmeterol 250/50 [Advair Diskus 250/50] 1 puff INH RQ12 #1 puff RX: guaiFENesin [Mucinex LA] 600 mg PO BID #30 tab RX: Insulin Glargine, Recombina [Lantus] 50 unit SC HS #2 vial RX: metFORMIN [glucOPHAGE] 1,000 mg PO DAILY #30 tab RX: Pregabalin [Lyrica] 75 mg PO DAILY #30 RX: Promethazine/Codeine [Phenergan/Codeine Oral Syrup] 5 ml PO Q4 PRN #1 PRN Reason: Cough RX: Saccharomyces Boulardi [Florastor] 250 mg PO DAILY #30 cap RX: Sitagliptin Phos/Metformin HCl [Janumet 50-1,000 mg Tablet] 1 each PO DAILY #30 - Follow Up Plan Condition: FAIR Disposition: HOME/ ROUTINE Instructions: Aspirin (By mouth), Guaifenesin (By mouth), Azithromycin (By mouth), Amlodipine (By mouth), Losartan (By mouth), Metformin (By mouth), Fluticasone/Salmeterol (By breathing), Promethazine/Codeine (By mouth), Pregabalin (By mouth), Sitagliptin (By mouth), Insulin Glargine (By injection), Pneumococcal Vaccine for Adults (DC), Meal Planning with Diabetes Exchanges (DC) , Bacterial Pneumonia (DC), Neutropenia (DC), Neutropenic Precautions (GEN) Additional Instructions: Patient is safe for discharge home. Patient is discharged with the following medications: Azithromycin 500 mg po qd for 7 days, florstar po bid, Mucinex, Phenergan with codeine 5 mL q 4h, Amlodipine 10 mg PO QD, Aspirin 81 mg po QD, Advair 1 puff INH RQ12, Lantus 50 units SC HS, Cozaar 100 mg po QD, Metformin 1000 mg PO QD, Lyrica 75 mg PO QD, Januvia 50 mg po qd. Patient is to follow up with Dr. Harding in 1 week. Patient can restart taking Revlimid once course of antibiotics is complete. Patient is to follow up with PMD upon discharge. Referrals: Solo Harding MD [Staff Provider] - <Abbi Ayers V - Last Filed: 09/08/16 08:20> Provider - Provider Date of Admission: 09/01/16 03:10 Attending physician: Irving Whitman MD Hospital Course - Lab Results Lab Results: Micro Results 09/01/16 06:00 Urine,Random Urine Culture - Final No Growth (<1,000 CFU/ML) Most Recent Lab Values WBC 3.0 K/uL (4.8-10.8) L 09/07/16 08:22 RBC 3.31 Mil/uL (3.80-5.20) L 09/07/16 08:22 Hgb 9.9 g/dL (11.0-16.0) L 09/07/16 08:22 Hct 29.8 % (34.0-47.0) L 09/07/16 08:22 MCV 89.9 fL (81.0-99.0) 09/07/16 08:22 MCH 30.0 pg (27.0-31.0) 09/07/16 08:22 MCHC 33.4 g/dL (33.0-37.0) 09/07/16 08:22 RDW 15.8 % (11.5-14.5) H 09/07/16 08:22 Plt Count 191 K/uL (130-400) 09/07/16 08:22 MPV 7.0 fL (7.2-11.7) L 09/07/16 08:22 Neut % (Auto) 51.3 % (50.0-75.0) 09/07/16 08:22 Lymph % (Auto) 33.2 % (20.0-40.0) 09/07/16 08:22 [place] % (Auto) 14.6 % (0.0-10.0) H 09/07/16 08:22 Eos % (Auto) 0.4 % (0.0-4.0) 09/07/16 08:22 Baso % (Auto) 0.5 % (0.0-2.0) 09/07/16 08:22 Neut # 1.5 K/uL (1.8-7.0) L 09/07/16 08:22 Lymph # 1.0 K/uL (1.0-4.3) 09/07/16 08:22 [place] # 0.4 K/uL (0.0-0.8) 09/07/16 08:22 Eos # 0.0 K/uL (0.0-0.7) 09/07/16 08:22 Baso # 0.0 K/uL (0.0-0.2) 09/07/16 08:22 Neutrophils % (Manual) 25 % (50-75) L 08/31/16 23:14 Band Neutrophils % 7 % (0-2) H 08/31/16 23:14 Lymphocytes % (Manual) 39 % (20-40) 08/31/16 23:14 Monocytes % (Manual) 24 % (0-10) H 08/31/16 23:14 Eosinophils % (Manual) 5 % (0-4) H 08/31/16 23:14 Platelet Estimate Normal (NORMAL) 08/31/16 23:14 Polychromasia Slight 08/31/16 23:14 Anisocytosis (manual) Slight 08/31/16 23:14 Ovalocytes Slight 08/31/16 23:14 PT 12.1 SECONDS (9.7-12.2) 08/31/16 23:14 INR 1.1 08/31/16 23:14 APTT 23 SECONDS (21-34) 09/02/16 11:28 Puncture Site R rad 09/01/16 00:02 pCO2 33 mm/Hg (35-45) L 09/01/16 00:02 pO2 101 mm/Hg (80-100) H 09/01/16 00:02 HCO3 31.3 mmol/L (21-28) H 09/01/16 00:02 ABG pH 7.57 (7.35-7.45) H 09/01/16 00:02 ABG Total CO2 31.2 mmol/L (22-28) H 09/01/16 00:02 ABG O2 Saturation 99.1 % (95-98) H 09/01/16 00:02 ABG Base Excess 8.1 mmol/L (-2.0-3.0) H 09/01/16 00:02 Jagjit Test Pos 09/01/16 00:02 ABG Potassium 2.3 mmol/L (3.6-5.2) L* 09/01/16 00:02 Sodium 133.0 mmol/l (132-148) 09/01/16 00:02 Chloride 100.0 mmol/L (98-107) 09/01/16 00:02 Glucose 179 mg/dl (65-105) H 09/01/16 00:02 Lactate 1.9 mmol/L (0.7-2.1) 09/01/16 00:02 Liter Flow 5.0 09/01/16 00:02 Crit Value Called To Dr bahena 09/01/16 00:02 Crit Value Called By Makayla michel rt 09/01/16 00:02 Crit Value Read Back Y 09/01/16 00:02 Blood Gas Notified Time 09/01/16 00:02 Sodium 135 mmol/L (132-148) 09/07/16 08:22 Potassium 3.7 mmol/L (3.6-5.2) 09/07/16 08:22 Chloride 100 mmol/L (98-107) 09/07/16 08:22 Carbon Dioxide 25 mmol/L (22-30) 09/07/16 08:22 Anion Gap 14 (10-20) 09/07/16 08:22 BUN 18 mg/dL (7-17) H 09/07/16 08:22 Creatinine 0.8 MG/DL (0.7-1.2) 09/07/16 08:22 Est GFR ( Amer) > 60 09/07/16 08:22 Est GFR (Non-Af Amer) > 60 09/07/16 08:22 POC Glucose (mg/dL) 342 mg/dL (65-110) H 09/07/16 11:10 Random Glucose 197 mg/dL (65-105) H 09/07/16 08:22 Calcium 9.0 mg/dl (8.6-10.4) 09/07/16 08:22 Phosphorus 4.5 mg/dL (2.5-4.5) 09/07/16 08:22 Magnesium 1.8 mg/dL (1.6-2.3) 09/07/16 08:22 Total Bilirubin 0.5 mg/dL (0.2-1.3) 09/07/16 08:22 AST 13 U/L (14-36) L 09/07/16 08:22 ALT 16 U/L (9-52) 09/07/16 08:22 Alkaline Phosphatase 39 U/L (38-126) 09/07/16 08:22 Total Creatine Kinase 250 U/L (30-135) H 08/31/16 23:14 CK-MB (Mass) 1.26 ng/mL (0.0-3.38) 08/31/16 23:14 Troponin I, Quant < 0.0120 ng/mL (0.00-0.120) 08/31/16 23:14 NT-Pro-B Natriuret Pep 425 pg/mL (0-900) 08/31/16 23:14 Total Protein 6.4 g/dL (6.3-8.3) 09/07/16 08:22 Albumin 3.1 g/dL (3.5-5.0) L 09/07/16 08:22 Globulin 3.3 gm/dL (2.2-3.9) 09/07/16 08:22 Albumin/Globulin Ratio 0.9 (1.0-2.1) L 09/07/16 08:22 [place] Allergen IgE Ab <0.10 kU/L (<0.10) 09/02/16 14:10 [place] Dugger Class 0 09/02/16 14:10 [place] Allergen IgE Ab <0.10 kU/L (<0.10) 09/02/16 14:10 [place] Dugger Class 0 09/02/16 14:10 Codfish Allergen IgE Ab <0.10 kU/L (<0.10) 09/02/16 14:10 [place] Dugger Class 0 09/02/16 14:10 Egg White IgE Ab <0.10 kU/L (<0.10) 09/02/16 14:10 Egg White Dugger Class 0 09/02/16 14:10 [place] Allergen IgE <0.10 kU/L (<0.10) 09/02/16 14:10 [place] Dugger Class 0 09/02/16 14:10 Milk Allergen IgE Ab <0.10 kU/L (<0.10) 09/02/16 14:10 Milk Dugger Class 0 09/02/16 14:10 Peanut Allergen IgE Ab <0.10 kU/L (<0.10) 09/02/16 14:10 Peanut Dugger Class 0 09/02/16 14:10 [place] Allergen IgE Ab <0.10 kU/L (<0.10) 09/02/16 14:10 [place] Convention Class 0 09/02/16 14:10 [place] Allergen IgE Ab <0.10 kU/L (<0.10) 09/02/16 14:10 [place] Dugger Class 0 09/02/16 14:10 Sesame Seed IgE Ab <0.10 kU/L (<0.10) 09/02/16 14:10 [place]ame Seed Dugger Cls 0 09/02/16 14:10 [place]rimp Allergen IgE Ab <0.10 kU/L (<0.10) 09/02/16 14:10 Shrimp Dugger Class 0 09/02/16 14:10 [place]bean Allergen IgE <0.10 kU/L (<0.10) 09/02/16 14:10 [place] Dugger Class 0 09/02/16 14:10 Tuna Conventional Clss 0 09/02/16 14:10 [place] Allergen IgE Ab <0.10 kU/L (<0.10) 09/02/16 14:10 [place] Dugger Class 0 09/02/16 14:10 Wheat Allergen IgE Ab <0.10 kU/L (<0.10) 09/02/16 14:10 Wheat Dugger Class 0 09/02/16 14:10 A. tenuis Allergen IgE <0.10 kU/L (<0.10) 09/02/16 14:10 A. tenuis Conven Class 0 09/02/16 14:10 Aspergillus fumigatus <0.10 kU/L (<0.10) 09/02/16 14:10 A. fumigatus ASM Class 0 09/02/16 14:10 Cladosporium herbarum <0.10 kU/L (<0.10) 09/02/16 14:10 C. herbarum ASM Class 0 09/02/16 14:10 D. farinae IgE Class 0 09/02/16 14:10 D. farinae Allrgen IgE <0.10 kU/L (<0.10) 09/02/16 14:10 D. pteronyssinus Class 0 09/02/16 14:10 D. pteronyssinus IgE <0.10 kU/L (<0.10) 09/02/16 14:10 Penicillium notatum <0.10 kU/L (<0.10) 09/02/16 14:10 P, notatum ASM Class 0 09/02/16 14:10 Birch Dugger Class 0 09/02/16 14:10 [place] Tree Allrg <0.10 kU/L (<0.10) 09/02/16 14:10 [place] Conven Cls 0 09/02/16 14:10 [place] Allergen <0.10 kU/L (<0.10) 09/02/16 14:10 [place] Dugger Class 0 09/02/16 14:10 Maple ([place]) Allg <0.10 kU/L (<0.10) 09/02/16 14:10 [place] Convention Clss 0 09/02/16 14:10 [place] Tree Allerg <0.10 kU/L (<0.10) 09/02/16 14:10 [place] Dugger Class 0 09/02/16 14:10 [place] Dugger Class 0 09/02/16 14:10 [place] Tree Allergen <0.10 kU/L (<0.10) 09/02/16 14:10 [place] Tree ASM Class 0 09/02/16 14:10 [place] Allergen <0.10 kU/L (<0.10) 09/02/16 14:10 [place] Tree Allergen <0.10 kU/L (<0.10) 09/02/16 14:10 [place] Dugger Class 0 09/02/16 14:10 [place] Tree Allergen <0.10 kU/L (<0.10) 09/02/16 14:10 [place] Dugger Class 0 09/02/16 14:10 [place] Tree Allerg <0.10 kU/L (<0.10) 09/02/16 14:10 [place] Dugger Clss 0 09/02/16 14:10 [place] Allergen <0.10 kU/L (<0.10) 09/02/16 14:10 [place] Grass Allergen <0.10 kU/L (<0.10) 09/02/16 14:10 [place] Grass Dugger Cl 0 09/02/16 14:10 [place] Grass Allergen <0.10 kU/L (<0.10) 09/02/16 14:10 [place] Grass Cnvnt Cls 0 09/02/16 14:10 Common Pigweed Allerg <0.10 kU/L (<0.10) 09/02/16 14:10 Common Ragweed Allergen <0.10 kU/L (<0.10) 09/02/16 14:10 Comm Ragweed Cnvnt Cls 0 09/02/16 14:10 Mugwort Allergen <0.10 kU/L (<0.10) 09/02/16 14:10 Mugwort Conventional 0 09/02/16 14:10 Pigweed Conventional 0 09/02/16 14:10 [place] Allergen <0.10 kU/L (<0.10) 09/02/16 14:10 [place] Conven Cls 0 09/02/16 14:10 Cat [place] Allergen <0.10 kU/L (<0.10) 09/02/16 14:10 Cat [place] Dugger Class 0 09/02/16 14:10 Dog Dander IgE Allergen <0.10 kU/L (<0.10) 09/02/16 14:10 Dog [place] Dugger Cls 0 09/02/16 14:10 Mouse Urine Allergen <0.10 kU/L (<0.10) 09/02/16 14:10 Mouse Urine Conven Clss 0 09/02/16 14:10 Cockroach Allergen <0.10 kU/L (<0.10) 09/02/16 14:10 Cockroach Dugger Clss 0 09/02/16 14:10 [place] IgE Ab <0.10 kU/L (<0.10) 09/02/16 14:10 [place] ASM 0 09/02/16 14:10 Arterial Blood Potassium 2.3 mmol/L (3.6-5.2) L* 09/01/16 00:02 Urine Color Yellow (YELLOW) 09/01/16 03:30 Urine Clarity Clear (Clear) 09/01/16 03:30 Urine pH 5.0 (5.0-8.0) 09/01/16 03:30 Ur Specific [place] 1.013 (1.003-1.030) 09/01/16 03:30 Urine Protein 1+ mg/dL (NEGATIVE) H 09/01/16 03:30 Urine Glucose (UA) 2+ mg/dL (Normal) H 09/01/16 03:30 Urine Ketones Negative mg/dL (NEGATIVE) 09/01/16 03:30 Urine Blood Negative (NEGATIVE) 09/01/16 03:30 Urine Nitrate Negative (NEGATIVE) 09/01/16 03:30 Urine Bilirubin Negative (NEGATIVE) 09/01/16 03:30 Urine Urobilinogen Normal mg/dL (0.2-1.0) 09/01/16 03:30 Ur Leukocyte Esterase Neg [place]/uL (Negative) 09/01/16 03:30 Urine WBC (Auto) 1 /hpf (0-5) 09/01/16 03:30 Ur Squamous Epith Cells 1 /hpf (0-5) 09/01/16 03:30 IgE <2 kU/L (<us=087) 09/02/16 14:10 Attending/Attestation - Attestation I have personally seen and examined this patient.: Yes I have fully participated in the care of the patient.: Yes I have reviewed all pertinent clinical information, including history, physical exam and plan: Yes Notes (Text): Hospitalist Covering Dr. Huntley's service Per PGY-2 Note. "CC: Cough + SOB x 3weeks HPI: This 56 year old Female with PMHx of Diabetes, HTN, Multiple Myeloma - presents to the ED c/o non-productive cough and SOB for the past 3 weeks. She states there is mucous present, however she cannot expel it. One week ago, she began to experience nausea from this mucous sensation, and reports vomiting 2-3 times per day, consistent with food contents and dark green mucous. She experiences relief after vomiting, and denies hematoschezia. Patient reports that she became febrile 2 days ago at 102.2F. She was treated by her PMD recently with oral Abx and Ventolin INH without marked improvement. Last nite her cough and SOB became more severe, prompting her to come to the ED last night (Tmax 103F). She recently imigrated from [place] 1 month ago. Admits to f/c , diaphoresis, weakness, SOB, cough, Abd pain. Denies H/A, dizziness, chest pain , overt nausea, dysuria, leg pain, sick contacts, or any additional complaints. PMD: Dr. Huntley PMH: Diabetes, HTN, Multiple Myeloma PSHx: bone marrow transplant Family History: States: Unknown Family Hx Meds: see EMR NKDA SocHx: Denies ETOH, tobacco, or illicit drug use" Patient admitted for multifocal pneumonia. Patient started on IV antibiotics. Patient's chemotherapuetic for multiple myeloma was held as patient received antibiotic therapy for pneumonia. Heme-oncology (Dr. Bradford Harding) was consulted on the case and patient's oncologist. Patient has history of diabetes and blood sugars were managed and optimized during hospitalization. Day of discharge, patient is eager to go home. Patient advised to follow-up with heme-onc upon discharge after completion of antibiotic therapy for mulifocal pneumonia. Patient is medically stable for discharge. Discharge instructions discussed in detail with patient and daughter at bedside. Patient completed 6 days of IV abx. Patient to complete an additional 7 days of antibiotic to complete therapy for multifocal pneumonia. RX: Amlodipine/Valsartan [Exforge 10-160 mg Tablet] 1 tab PO DAILY #30 RX: Aspirin [Aspirin Chewable] 81 mg PO DAILY #30 RX: Azithromycin [Zithromax Tri-Wang] 500 mg PO DAILY #7 tablet RX: Fluticasone/Salmeterol 250/50 [Advair Diskus 250/50] 1 puff INH RQ12 #1 puff RX: guaiFENesin [Mucinex LA] 600 mg PO BID #30 tab RX: Insulin Glargine, Recombina [Lantus] 50 unit SC HS #2 vial RX: metFORMIN [glucOPHAGE] 1,000 mg PO DAILY #30 tab RX: Pregabalin [Lyrica] 75 mg PO DAILY #30 RX: Promethazine/Codeine [Phenergan/Codeine Oral Syrup] 5 ml PO Q4 PRN #1 PRN Reason: Cough RX: Saccharomyces Boulardi [Florastor] 250 mg PO DAILY #30 cap RX: Sitagliptin Phos/Metformin HCl [Janumet 50-1,000 mg Tablet] 1 each PO DAILY #30 This is a summary of patient's hospitalization. Please review entire EMR for further details.
--- NOTE | 2016-09-21 13:30 | CARD ---
APPROVED REPORT EKG Measurement Heart [id number] [id number] <Conclusion> Normal sinus rhythm ST & T wave abnormality, consider inferior ischemia ST & T wave abnormality, consider anterolateral ischemia Abnormal ECG
--- NOTE | 2016-10-18 02:53 | HP ---
HISTORY OF PRESENT ILLNESS: The patient came to the hospital with complaints of weakness, fatigue, tiredness. The patient came to the ER, advised admission. PHYSICAL EXAMINATION: GENERAL: Patient is awake, alert, oriented. VITAL SIGNS: Temperature is 98, pulse 90. HEENT: Within normal limits. NECK: Supple. CHEST: Symmetrical. HEART: Regular. ABDOMEN: Soft. EXTREMITIES: No edema. IMPRESSION: The patient needs bed rest, supportive care. Devi Huntley MD
== END 2016-09-07 14:35 | disposition home or self-care (01) | DRG 89 ==
LOC: C.ER 22:03 → C.5T 09-01 03:10
PROVIDERS: ADMIT Internal Medicine Pulmonary Disease; ATTEND Internal Medicine
DX: J18.9 Pneumonia, unspecified organism (principal); C90.00 Multiple myeloma not having achieved remission; D70.9 Neutropenia, unspecified; Z94.84 Stem cells transplant status; I10 Essential (primary) hypertension; E11.9 Type 2 diabetes mellitus without complications; D64.9 Anemia, unspecified; E87.6 Hypokalemia; E83.39 Other disorders of phosphorus metabolism; J45.909 Unspecified asthma, uncomplicated; Z79.51 Long term (current) use of inhaled steroids; Z79.84 Long term (current) use of oral hypoglycemic drugs; Z79.899 Other long term (current) drug therapy

== ENCOUNTER 2017-04-19 18:14 | Emergency (ER) | payer SELFPAY ==
[2017-04-19] MEDS ORDERED: Sodium Chloride 0.9% 1,000 ML IV ONE (19:48)
--- NOTE | 2017-04-19 19:56 | C.PDOC ---
History Of Present Illness Patient presents to the ER with a complaint of SOB, cough, and fever for the past 3 days. Patient reports she is finishing a course of cipro for a UTI. Denies chest pain, nausea, or vomiting. Time Seen by Provider: 04/19/17 19:44 Chief Complaint (Nursing): Shortness Of Breath History Per: Patient History/Exam Limitations: no limitations Onset/Duration Of Symptoms: Days Current Symptoms Are (Timing): Still Present Initiating Event: Other (Not known) Quality: Dull Exacerbating Factor(s): Coughing Current Respiratory Medications: None Severity: Moderate Pain Scale Rating Of: 4 Associated Symptoms: Fever, Other ((+) Cough, SOB (-) Nausea, Vomiting). denies : Chest Pain Reports Recently: Treated By A Physician Recent travel outside of the [place]: No Additional History Per: Family Past Medical History Reviewed: Historical Data, Nursing Documentation, Vital Signs Vital Signs: Last Vital Signs Temp 99.2 F 04/19/17 18:37 Pulse 97 H 04/19/17 18:37 Resp 24 04/19/17 18:37 BP 112/74 04/19/17 18:37 Pulse Ox 97 04/19/17 20:05 - Medical History PMH: Asthma, Diabetes, HTN, Pneumonia Family History: States: No Known Family Hx - Social History Hx Tobacco Use: No Hx Alcohol Use: No Hx Substance Use: No Review Of Systems Constitutional: Positive for: Fever Eyes: Negative for: Redness ENT: Negative for: Throat Pain Cardiovascular: Negative for: Chest Pain, Palpitations Respiratory: Positive for: Cough, Shortness of Breath Gastrointestinal: Negative for: Nausea, Vomiting Genitourinary: Negative for: Dysuria Musculoskeletal: Negative for: Back Pain Skin: Negative for: Rash, Lesions Neurological: Negative for: Weakness Psych: Negative for: Anxiety Physical Exam - Physical Exam Appears: Non-toxic Skin: Warm, Dry Head: Normacephalic Eye(s): bilateral: Normal Inspection Oral Mucosa: Moist Neck: Supple Chest: Symmetrical, No Tenderness Cardiovascular: Rhythm Regular Respiratory: No Rales, Rhonchi (At the bases), No Wheezing Gastrointestinal/Abdominal: Soft, No Tenderness Back: No CVA Tenderness Extremity: Normal ROM Extremity: Bilateral: Atraumatic Pulses: Left Dorsalis Pedis: Normal, Right Dorsalis Pedis: Normal Neurological/Psych: Oriented x3 Gait: Steady ED Course And Treatment - Laboratory Results Result Diagrams: 04/19/17 20:55 04/19/17 20:55 O2 Sat by Pulse Oximetry: 97 (room air) Pulse Ox Interpretation: Normal Progress Note: CT chest, blood work, CXR, blood work, and urinalysis ordered. Albuterol nebulizer and IV fluids administered. Disposition Discussed With : Devi Huntley Comment: accepted the pt on his service and took over the care at 9:22 PM Doctor Will See Patient In The: Hospital Counseled Patient/Family Regarding: Studies Performed, Diagnosis - Disposition Disposition: HOSPITALIZED Disposition Time: 21:22 Condition: FAIR Forms: [facility] (Macedonian) - POA Present On Arrival: Poor Glycemic Control - Clinical Impression Clinical Impression: Dyspnea, Hyperglycemia - Scribe Statement The provider has reviewed the documentation as recorded by the Scribe Zan Turner All medical record entries made by the Scribe were at my direction and personally dictated by me. I have reviewed the chart and agree that the record accurately reflects my personal performance of the history, physical exam, medical decision making, and the department course for this patient. I have also personally directed, reviewed, and agree with the discharge instructions and disposition. Decision To Admit - Pt Status Changed To: Hospital Disposition Of: Inpatient - Admit Certification Admit to Inpatient:: After my assessment, the patient will require hospitalization for at least two midnights. This is because of the severity of symptoms shown, intensity of services needed, and/or the medical risk in this patient being treated as an outpatient. - InPatient: Physician Admission Certification: I certify that this patient requires 2 or more midnights of care for the following reason:: After my assessment, the patient will require hospitalization for at least two midnights. This is because of the severity of symptoms shown, intensity of services needed, and/or the medical risk in this patient being treated as an outpatient. - . Bed Request Type: Regular Admitting Physician: Devi Huntley Patient Diagnosis: Dyspnea, Hyperglycemia
[2017-04-19] MEDS ORDERED: Albuterol-Ipratrop 3 mg / 0.5 (3 ml) UD IH SCH (20:00)
[2017-04-19 20:59] LABS: VENOUS BLOOD GAS BASE EXCESS 6.2 mmol/L (0.0-2.0); VENOUS BLOOD GAS PCO2 42 mmHg (40-60); VENOUS BLOOD GAS PO2 47 mm/Hg (30-55); VENOUS BLOOD PH 7.47 (7.32-7.43)
[2017-04-19 21:00] LABS: BASO % 0.9 % (0.0-2.0); EOS % 2.5 % (0.0-4.0); HEMOGLOBIN 10.8 g/dL (11.0-16.0); LYMPH # 0.4 K/uL (1.0-4.3); LYMPH % 28.7 % (20.0-40.0); MEAN CORPUSCULAR HEMOGLOBIN 29.8 pg (27.0-31.0); MEAN CORPUSCULAR HGB CONC 34.2 g/dL (33.0-37.0); MEAN PLATELET VOLUME 7.5 fL (7.2-11.7); MONO # 0.2 K/uL (0.0-0.8); MONO % 13.2 % (0.0-10.0); NEUT # 0.8 K/uL (1.8-7.0); NEUT % 54.7 % (50.0-75.0); NRBC % 0.2 % (0.0-2.0); RBC 3.63 Mil/uL (3.80-5.20); RED CELL DISTRIBUTION WIDTH 15.5 % (11.5-14.5)
--- NOTE | 2017-04-19 21:03 | CT ---
EXAM: CT Chest Without Intravenous Contrast EXAM DATE/TIME: Exam ordered 04/19/2017 7:55 PM CLINICAL HISTORY: 57 years old, female; Signs and symptoms; Cough and mass, lump, or swelling in the chest; Symptoms not specified; Additional info: Fever, cough, left density, TECHNIQUE: Axial computed tomography images of the chest without intravenous contrast. All CT scans at this facility use one or more dose reduction techniques, viz.: automated exposure control; ma/kV adjustment per patient size (including targeted exams where dose is matched to indication; i.e. head); or iterative reconstruction technique. Coronal and sagittal reformatted images were created and reviewed. COMPARISON: No relevant prior studies available. FINDINGS: Lungs: Incidental note is made of an azygous lobe which is a normal variant. There are scattered bulla noted in the right upper lobe. A single bulla is seen in the left upper lobe. Scattered small groundglass opacities are noted in both lungs. A 3.5 mm nodule is noted in the right upper lobe (series 3 image 35). A 5.1 mm nodule is noted in the left lower lobe (series 3 image 59). A 3.4 mm nodule is noted in the left lower lobe (series 3 image 56.) Pleural space: Unremarkable. No pneumothorax. No significant effusion. Heart: Unremarkable. No cardiomegaly. No significant pericardial effusion. Mediastinum: There is a small hiatal hernia. Bones/joints: Multiple lytic lesions are noted within the vertebral bodies and the ribs. Lytic lesions are also noted within the sternum. Lytic lesions are suggested within the humeri bilaterally and the right scapula. Degenerative changes are noted of the thoracic spine No acute fracture. No dislocation. Soft tissues: Calcifications are noted within the left breast. Correlate with the patient's mammogram. Vasculature: Unremarkable. No thoracic aortic aneurysm. Lymph nodes: Unremarkable. No enlarged lymph nodes. Liver: The liver is low in density. The liver measures at least 18 cm in craniocaudal span. Gallbladder and bile ducts: Gallstones are seen in the gallbladder. Kidneys and ureters: A 1.1 cm lipoma is noted in the mid right kidney. (Density measurement of -70 8H). IMPRESSION: 1. Diffuse lytic bony lesions noted within the visualized axial and appendicular skeleton highly suggestive of metastatic disease 2. Scattered groundglass and solid nodular densities in both lungs. In light of the findings in #1, metastatic disease is a primary consideration. Mild underlying bullous disease. 3. Gallstones. 4. Lipoma in the right kidney. 5. Small hiatal hernia. 6. Hepatic steatosis. 7. Calcifications are noted within the left breast. Correlate with the patient's mammogram.
[2017-04-19 21:06] LABS: SQUAMOUS EPITHIAL 1 /hpf (0-5); URINE BACTERIA RARE (<OCC); URINE BILIRUBIN NEGATIVE (NEGATIVE); URINE BLOOD NEGATIVE (NEGATIVE); URINE CLARITY Hazy (Clear); URINE COLOR Yellow (YELLOW); URINE GLUCOSE (UA) 1+ mg/dL (Normal); URINE LEUKOCYTE ESTERASE NEG Leu/uL (Negative); URINE NITRATE NEGATIVE (NEGATIVE); URINE PROTEIN 1+ mg/dL (NEGATIVE); URINE UROBILINOGEN NORMAL mg/dL (0.2-1.0)
[2017-04-19 21:07] LABS: INR 1.1; MEAN CELL VOLUME 87.2 fL (81.0-99.0); PROTHROMBIN TIME 12.1 SECONDS (9.7-12.2); WHITE BLOOD COUNT 1.5 K/uL (4.8-10.8)
[2017-04-19] MEDS ORDERED: Piperacillin/Tazobact 3.375 gm 100 ML IVPB STA (21:09)
[2017-04-19 21:11] LABS: ALBUMIN 3.9 g/dL (3.5-5.0); CALCIUM 8.6 mg/dl (8.6-10.4); GFR AFRICAN-AMERICAN > 60; GFR NON-AFRICAN AMERICAN 51
[2017-04-19 21:12] LABS: ALT/SGPT 38 U/L (9-52); AST/SGOT 43 U/L (14-36); BLOOD UREA NITROGEN 22 mg/dL (7-17)
[2017-04-19 21:23] LABS: B-TYPE NATRIURETIC PEPTIDE 103 pg/mL (0-900)
[2017-04-19] MEDS ORDERED: Piperacillin/Tazobact 3.375 gm 100 ML IVPB ONE (21:46)
[2017-04-19] MEDS ORDERED: (Lantus) Insulin Glargine, Recombinant SC SCH (22:00)
[2017-04-19] MEDS ORDERED: Iohexol 240 (50 ml) PO ONE (22:18)
[2017-04-19] MEDS ORDERED: Iohexol 240 (50 ml) ONE (22:22)
[2017-04-19] MEDS ORDERED: Iohexol 350mg/ml 100 ML ONE (22:38)
--- NOTE | 2017-04-20 00:13 | CT ---
EXAM: CT Abdomen and Pelvis With Intravenous Contrast CLINICAL HISTORY: 57 years old, female; Pain; Abdominal pain; Additional info: Metastatic lung disease TECHNIQUE: Axial computed tomography images of the abdomen and pelvis with intravenous contrast. All CT scans at this facility use one or more dose reduction techniques, viz.: automated exposure control; ma/kV adjustment per patient size (including targeted exams where dose is matched to indication; i.e. head); or iterative reconstruction technique. Coronal and sagittal reformatted images were created and reviewed. CONTRAST: 100 mL of [id number] administered intravenously. COMPARISON: No relevant prior studies available. FINDINGS: Limitations: Motion artifact - mild. Lower thorax: Small hiatal hernia. Small cluster of calcifications within left breast. ABDOMEN: Liver: Fatty infiltration. Gallbladder and bile ducts: Calcified gallstones. No significant ductal dilation. Pancreas: 1.3 x 1.2 x 1.5 cm hypodense lesion within head of pancreas. Spleen: No splenomegaly. Adrenals: No mass. Kidneys and ureters: Small right renal angiomyolipoma. Few too small to characterize lesions within kidneys. No hydronephrosis. Stomach and bowel: No definite mural thickening. No obstruction. Appendix: Normal caliber. No inflammation. PELVIS: Bladder: Unremarkable. Reproductive: Unremarkable as visualized. ABDOMEN and PELVIS: Intraperitoneal space: No significant fluid collection. No free air. Bones/joints: Several healing/healed rib fractures. Multiple lytic lesions within visualized bones. Soft tissues: Unremarkable. Vasculature: Minimal atherosclerotic disease. No aneurysm. Lymph nodes: No pathologically enlarged lymph nodes. IMPRESSION: 1. Lytic bone lesions. DDX: Metastatic disease, multiple myeloma. Clinical correlation is needed. 2. Pancreatic lesion, indeterminate. Recommend MRI. 3. Incidental/non-acute findings are described above.
[2017-04-20] MEDS: guaiFENesin 200 mg/10 ml Syrup UD PO PRN ×2 (00:23→06:02)
[2017-04-20] MEDS ORDERED: guaiFENesin 100 mg/5 ml Syrup UD ONE ×2 (00:23→05:56)
[2017-04-20] MEDS: Albuterol-Ipratrop 3 mg / 0.5 (3 ml) UD INH SCH ×3 (00:35→09:25)
[2017-04-20] MEDS ORDERED: Albuterol-Ipratrop 3 mg / 0.5 (3 ml) UD ONE ×2 (00:38→03:28)
[2017-04-20] MEDS ORDERED: Fluticasone-Salmeterol 250-50mcg Diskus INH SCH (08:00)
--- NOTE | 2017-04-20 08:56 | RAD ---
HISTORY: COUGH AND SOB COMPARISON: Comparison made with chest radiograph 08/31/2016. Comparison also made with concurrent CT scan abdomen and pelvis which image both lung bases. TECHNIQUE: Chest PA and lateral FINDINGS: LUNGS: Suspect minimal bibasilar atelectasis PLEURA: No significant pleural effusion identified. No pneumothorax apparent. CARDIOVASCULAR: Heart size normal. OSSEOUS STRUCTURES: There are multifocal metastatic lesions scattered throughout the ribs (some of which are expansile) including the clavicles and possibly the right scapula as well. VISUALIZED UPPER ABDOMEN: Normal. OTHER FINDINGS: None. IMPRESSION: Multifocal metastatic lesions scattered throughout the ribs, some of which are expansile as well as clavicles and possibly right scapula. Suspect minimal bibasilar atelectasis.
[2017-04-20 09:27] VITALS: BP 115/74; PULSE 81; RESP 18; TEMP 97.6; O2SAT 97
[2017-04-20] MEDS ORDERED: Enoxaparin 30 mg Syringe SC SCH (10:00)
[2017-04-20] MEDS ORDERED: LENALIDOMIDE 15 MG PO SCH ×3 (10:00→11:15)
--- NOTE | 2017-04-20 11:19 | CP.PCM.PN ---
Subjective - Date & Time of Evaluation Date of Evaluation: 04/20/17 Time of Evaluation: 10:00 - Subjective Subjective: PGY2 Medicine Note - Dr. Huntley's Service CC: Cough + SOB x 3days HPI: This 57 year old Female with PMHx of Diabetes, HTN, Multiple Myeloma - presents to the ED c/o non-productive cough and SOB for the past 3 days. She recently completed Cipro for a UTI infection diagnosed 5 days ago. She has been c/o dry cough and home temperature reading of 103, which improved with OTC Tylenol. She has been afebrile while in the ED. She also admits to having a bone [place] [facility] trasnplant in [place] in 2014 for her Multiple Myeloma. She had a CT scan performed in [place] 2 months ago showing no active disease. She also reports having an M-protein test performed 5 days ago with normal results. Admits to fever, mild SOB, and cough. Denies H/A, dizziness, chest pain, back pain, overt nausea, dysuria, leg pain, sick contacts, or any additional complaints. She received a dose of Tamiflu while in the ED. PMD: Dr. Huntley PMH: Diabetes, HTN, Multiple Myeloma PSHx: bone marrow transplant Family History: States: Unknown Family Hx Meds: see EMR NKDA SocHx: Denies ETOH, tobacco, or illicit drug use Objective - Vital Signs/Intake and Output Vital Signs (last 24 hours): Temp Pulse Resp BP Pulse Ox 97.6 F 81 18 115/74 97 04/20/17 09:25 04/20/17 09:25 04/20/17 09:25 04/20/17 09:25 04/20/17 09:25 - Medications Medications: Current Medications Albuterol/Ipratropium (Duoneb 3 Mg/0.5 Mg (3 Ml) Ud) 3 ml INH RQ4 [facility] Last Admin: 04/20/17 09:25 Dose: 3 ml Amlodipine Besylate (Norvasc) 10 mg PO DAILY [facility] Last Admin: 04/20/17 10:26 Dose: Not Given Aspirin (Aspirin Chewable) 81 mg PO DAILY [facility] Last Admin: 04/20/17 10:26 Dose: Not Given Enoxaparin Sodium (Lovenox) 30 mg SC DAILY [facility] Last Admin: 04/20/17 10:26 Dose: Not Given Guaifenesin (Robitussin) 200 mg PO Q4H PRN PRN Reason: Cough and congestion Last Admin: 04/20/17 06:02 Dose: 200 mg Home Med (Lenalidomide [Revlimid]) 15 mg PO DAILY [facility] Insulin Glargine (Lantus) 40 unit SC HS [facility] Last Admin: 04/19/17 22:59 Dose: Not Given Losartan Potassium (Cozaar) 100 mg PO DAILY [facility] Last Admin: 04/20/17 10:26 Dose: Not Given Metformin HCl (Glucophage) 1,000 mg PO BID [facility] Last Admin: 04/20/17 09:07 Dose: Not Given Pregabalin (Lyrica) 75 mg PO DAILY [facility] Last Admin: 04/20/17 10:26 Dose: 75 mg Fluticasone/Salmeterol (Advair Diskus 250/50) 1 puff INH RQ12 [facility] Last Admin: 04/20/17 09:25 Dose: Not Given Sitagliptin Phosphate (Januvia) 50 mg PO BID [facility] Last Admin: 04/20/17 10:26 Dose: 50 mg - Labs Labs: 04/19/17 20:55 04/19/17 20:55 PT 12.1 SECONDS (9.7-12.2) 04/19/17 20:55 INR 1.1 04/19/17 20:55 APTT 29 SECONDS (21-34) 04/19/17 20:55 - Additional Findings Additional findings: - Constitutional Appears: Non-toxic, No Acute Distress - Head Exam Head Exam: ATRAUMATIC, NORMAL INSPECTION - Eye Exam Eye Exam: EOMI, Normal appearance, PERRL Pupil Exam: NORMAL ACCOMODATION - ENT Exam ENT Exam: Mucous Membranes Moist -nares boggy / hyperemic - Neck Exam Neck Exam: Full ROM, Normal Inspection. absent: Tenderness - Respiratory Exam Respiratory Exam: Decreased Breath Sounds, NORMAL BREATHING PATTERN. absent: Rales, Rhonchi, Wheezes - Cardiovascular Exam Cardiovascular Exam: REGULAR RHYTHM, +S1, +S2. absent: Tachycardia - GI/Abdominal Exam GI & Abdominal Exam: Soft, Hypoactive Bowel Sounds. Absent: Tenderness - Extremities Exam Extremities Exam: Normal Capillary Refill, Normal Inspection. absent: Pedal Edema, Tenderness - Back Exam Back Exam: NORMAL INSPECTION. absent: CVA tenderness (L), CVA tenderness (R) - Neurological Exam Neurological Exam: Alert, Awake, Oriented x3 - Psychiatric Exam Psychiatric exam: Normal Affect, Normal Mood - Skin Skin Exam: Dry, Intact, Normal Color, Warm Assessment and Plan - Assessment and Plan (Free Text) Assessment: Flu Syndrome Tamiflu 75mg PO Q12H afebrile Cough / Dyspnea Duoneb 3 Mg/0.5 Mg (3 Ml) Ud) 3 ml INH RQ4 DK Robitussin) 200 mg PO Q4H PRN Advair Diskus 250/50) 1 puff INH RQ12 DK Hx Multiple Myeloma 04/20: patient has been off her medication for 1 month. She recently had a CT chest in [place] that was negative for MM. Patient to followup with Dr. Harding for ongoing care. Lenalidomide [Revlimid]) 15 mg PO DAILY DK -CT chest - lytic bone lesions (r/o metastasis?); ground glass opacities in lungs; R kidney lipoma, hiatal hernia; hepatic steatosis; Calcifications in R breast. See full report -Abd/Pelv CT - multiple myeloma? see full report -CXR - lesions at ribs and clavicles bilaterally. See full report. Diabetes Lantus) 40 unit SC HS DK Glucophage) 1,000 mg PO BID DK Januvia) 50 mg PO BID DK Hypertension Cozaar) 100 mg PO DAILY DK Norvasc 10 mg PO DAILY DK Aspirin Chewable) 81 mg PO DAILY DK Prophylaxis Lovenox) 30 mg SC DAILY DK Case discussed with attending - all management as per Dr. Huntley.
--- NOTE | 2017-04-21 07:12 | HP ---
HISTORY: The patient was admitted to hospital with chief complaint of cough, shortness of breath. The patient has a history of asthma, history of multiple myeloma. The patient could not take the medication because of the cost for a month. The x-ray and CT revealed bilateral lytic lesions. PHYSICAL EXAMINATION: GENERAL: The patient is awake, alert, oriented. VITAL SIGNS: Temperature is 98, pulse 90. HEENT: Within normal limits. NECK: Supple. CHEST: Symmetrical. HEART: Regular. ABDOMEN: Soft. EXTREMITIES: No edema. IMPRESSION: The patient suffers from asthma, bronchitis, known history of multiple myeloma, lytic lesion secondary to multiple myeloma. At this point, we will discharge the patient. Follow up with Oncology for further management. Devi Huntley MD cc:
--- NOTE | 2017-04-21 12:29 | CARD ---
APPROVED REPORT EKG Measurement Heart [id number] NM 150P63 [id number] <Conclusion> Normal sinus rhythm Nonspecific ST and T wave abnormality Abnormal ECG
[2017-04-21 20:44] LABS: ALBUMIN (PEP) 3.1 g/dL (3.8-4.8); ALPHA-1-GLOBULIN (PEP) 0.5 g/dL (0.2-0.3)
== END 2017-04-20 11:12 | disposition home or self-care (01) ==
LOC: C.ER 18:14 → UNDOADMIN 21:21 → C.9E 21:21 → UNDODISIN 04-20 11:12
DX: R06.00 Dyspnea, unspecified (principal); E11.65 Type 2 diabetes mellitus with hyperglycemia
CPT/HCPCS: 71046; 71250; 74177; 80053; 81001; 82232; 82803; 82948; 83880; 84155; 84165; 84484; 85025; 85610; 85730; 87040; 87804; 93005; 94640; 96361; 96365; 96375; 99285; J2405; J2543; J7040; Q9966; Q9967

== ENCOUNTER 2017-09-03 15:39 | Emergency (ER) | payer SELFPAY ==
[2017-09-03 15:45] VITALS: BP 115/75; PULSE 68; RESP 20; TEMP 98; O2SAT 98
--- NOTE | 2017-09-03 16:25 | RAD ---
PROCEDURE: Left Foot Radiographs. HISTORY: left foot/toe pain r/o fx COMPARISON: None. FINDINGS: BONES: Normal. No fracture. JOINTS: Normal. SOFT TISSUES: Normal. OTHER FINDINGS: None. IMPRESSION: Normal left foot radiographs.
--- NOTE | 2017-09-03 16:39 | C.PDOC ---
History Of Present Illness 57 y/o female presents to the ER complaining left big toe pain around nail area since yesterday; states a door closed on her foot. She denies any other injuries or sensory changes. Time Seen by Provider: 09/03/17 15:46 Chief Complaint (Nursing): Lower Extremity Problem/Injury History Per: Patient, Family (duaghter at bedside ) History/Exam Limitations: no limitations Onset/Duration Of Symptoms: Days Current Symptoms Are (Timing): Still Present Severity: Mild Past Medical History Reviewed: Historical Data, Nursing Documentation, Vital Signs Vital Signs: Last Vital Signs Temp 98.0 F 09/03/17 15:42 Pulse 68 09/03/17 15:42 Resp 20 09/03/17 15:42 BP 115/75 09/03/17 15:42 Pulse Ox 98 09/04/17 08:12 - Medical History PMH: Asthma, Diabetes, HTN, Pneumonia Surgical History: No Surg Hx Family History: States: No Known Family Hx - Social History Hx Tobacco Use: No Hx Alcohol Use: No Hx Substance Use: No - Immunization History Hx Tetanus Toxoid Vaccination: No Hx Influenza Vaccination: Yes (2017) Hx Pneumococcal Vaccination: Yes (03/2017) Review Of Systems Constitutional: Negative for: Fever, Chills Musculoskeletal: Positive for: Foot Pain (Left big toe ) Skin: Negative for: Rash Neurological: Negative for: Weakness, Other (Sensory changes) Physical Exam - Physical Exam Appears: Well, Non-toxic, No Acute Distress Skin: Normal Color, Warm, Dry Head: Atraumatic, Normacephalic Eye(s): bilateral: Normal Inspection Oral Mucosa: Moist Neck: Supple Cardiovascular: Rhythm Regular Respiratory: Normal Breath Sounds, No Rales, No Rhonchi, No Wheezing Extremity: Tenderness (Left great toe diffusely tender to palpation, greatest around nail ), Capillary Refill (< 2 sec all digits ), No Deformity, Other ( Left great toenail is partially avulsed at lateral aspects, but attached at nailbed. small amount of dry blood on distal aspect of toe, no active bleeding , no subungual hematoma ) Pulses: Left Dorsalis Pedis: Normal, Right Dorsalis Pedis: Normal Neurological/Psych: Oriented x3, Normal Sensation Gait: Steady ED Course And Treatment O2 Sat by Pulse Oximetry: 98 (RA) Pulse Ox Interpretation: Normal - Other Rad XR left foot X-Ray: Viewed By Me, Read By Radiologist Interpretation: Accession No. : [id number]. Patient Name / ID : SHANTA MAI / [id number]. Exam Date : 09/03/2017 15:59:47 ( Approved ). Study Comment : Sex / Age : F / 57Y. Creator : Bari Garcia MD. Dictator : Bari Garcia MD. 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 Approver2 : Report Date : 09/03/2017 16:24:05. My Comment : . PROCEDURE: Left Foot Radiographs. HISTORY: left foot/toe pain r/o fx. COMPARISON: None. FINDINGS: BONES: Normal. No fracture. JOINTS: Normal. SOFT TISSUES: Normal. OTHER FINDINGS: None. IMPRESSION: Normal left foot radiographs. Progress Note: Xrays of left foot ordered and reviewed. Xray negative for fracture. Bacitracin and gauze dressing applied to toe by nurse. Patient instructed to follow up with podiatry within 1 week. She understands she should return to ED if symptoms worsen. Disposition Counseled Patient/Family Regarding: Studies Performed, Diagnosis, Need For Followup, Rx Given - Disposition Referrals: Podiatry Clinic [Outside] Disposition: HOME/ ROUTINE Disposition Time: 16:40 Condition: STABLE Additional Instructions: FOLLOW UP WITH PODIATRY WITHIN 1 WEEK USE MEDICATION NEEDED FOR PAIN RETURN TO EMERGENCY ROOM IF SYMPTOMS WORSEN Prescriptions: Naproxen 375 mg PO BID PRN #20 tablet PRN Reason: pain Instructions: Toe Injury (DC) Forms: [facility] (Irish) Print Language: TELUGU - POA Present On Arrival: Falls Or Trauma - Clinical Impression Clinical Impression: Sprain of toe, great, left - Scribe Statement The provider has reviewed the documentation as recorded by the Antonio Robins All medical record entries made by the Antonio were at my direction and personally dictated by me. I have reviewed the chart and agree that the record accurately reflects my personal performance of the history, physical exam, medical decision making, and the department course for this patient. I have also personally directed, reviewed, and agree with the discharge instructions and disposition.
[2017-09-03] MEDS ORDERED: Bacitracin 500 Units/gm Oint Foilpak UD TOP ONE (16:43)
== END 2017-09-03 16:44 | disposition home or self-care (01) ==
LOC: C.ER 15:39
DX: S93.502A Unspecified sprain of left great toe, initial encounter (principal); W22.8XXA Striking against or struck by other objects, initial encounter